=== PATIENT | male | born 1955 | race Caucasian/White ===

== ENCOUNTER 2020-06-26 13:21 | Outpatient (CLI) | payer MEDICARE, MEDICAID, SELFPAY ==
--- NOTE | 2020-06-26 13:37 | CT_ITS ---
WS: [id number] CT HEAD NONCONTRAST AND CONTRAST-ENHANCED TECHNIQUE: Noncontrast and contrast-enhanced CT of the head obtained from the skullbase to the vertex . CLINICAL INFORMATION: UNSPECIFIED DEMENTIA WITHOUT BEHAVORAL DISTURBANCE COMPARISON: None. DLP: 1984.[address] scans at [facility] use at least one of these dose optimization techniques: automat ed exposure control; mA and/or kV adjustment per patient size (includes targeted exams where dose is matched to clinical indication); or iterative reconstruction. FINDINGS: No evidence of intracranial hemorrhage or mass effect. Ventricular system and basal cisterns are foss nt. Moderate small vessel changes with moderate parenchymal volume loss. Moderate atrophy in the post erior fossa. No extra-axial fluid collections. No evidence of mass or mass effect. Incidental pineal calcification. No abnormal cranial enhancement. Paranasal sinuses and mastoid air cells are well aerated. .Normal visualized soft tissues. CT/CT head wo/w con [id number] IMPRESSION: 1. No evidence of intracranial hemorrhage or mass effect. 2. Moderate small vessel changes with moderate parenchymal volume loss. 3. No abnormal intracranial enhancement. 4. No acute intracranial findings.
[2020-06-26 14:04] LABS: Blood Urea Nitrogen 15 mg/dL (8-23); Glomerular Filtration Rate 134.8 mL/min (90-130)
[2020-06-26] MEDS: iohexol 300 mg/mL 100 mL Btl IV (14:14)
== END 2020-06-26 13:22 | disposition home or self-care (01) ==
PROVIDERS: Visit Provider Family Medicine
DX: F03.90 Unspecified dementia, unspecified severity, without behavioral disturbance, psychotic disturbance, mood disturbance, and anxiety (principal)
CPT/HCPCS: 70470; 82565; 84520; Q9967

== ENCOUNTER 2023-04-03 00:32 | Inpatient (IN) | payer MEDICARE, MEDICAID, SELFPAY ==
[2023-04-03] VITALS (22 sets, daily range): BP systolic 89–134; BP diastolic 53–75; PULSE 53–84; RESP 10–18; TEMP 36.1–37.1; O2SAT 91–98; BMI 27.0; BMI 23.7; BMI 23.8
--- NOTE | 2023-04-03 00:37 | XRR_ITS ---
PROCEDURE INFORMATION: Exam: XR Right Hip Exam date and time: 04/03/2023 1:18 AM Age: 67 years old Clinical indication: Hip pain; Right hip; Additional info: Fall, right hip pain TECHNIQUE: Imaging protocol: Radiologic exam of the right hip. Views: 1 view hip with pelvis when performed. COMPARISON: No relevant prior studies available. FINDINGS: Bones/joints: Minimally displaced and mildly impacted right transcervical femoral neck fracture. Femoral head remains well seated within the acetabulum. Soft tissues: Mild regional soft tissue swelling about the fracture. XR/XR hip RT 2-3V wo/w pel* [id number] IMPRESSION: Acute right transcervical femoral neck fracture.
--- NOTE | 2023-04-03 00:44 | W.ED.EXTPRO ---
HPI - Extremity Problem General: Chief complaint: Extremity Injury, Lower Stated complaint: hip pain, fall Time Seen by Provider: 04/03/23 00:36 History of Present Illness: Patient presents from his home by [facility] status post fall. Patient had an unwitnessed fall at his house. It happened approximately between 930 and 11:00. Patient was given 100 mcg of fentanyl and 4 mg Zofran on route by EMS. Patient is right leg appears to be shortened and patient is very tender upon the right hip region. Review of Systems General: Reports: 10 or more systems reviewed and unremarkable except in HPI and below Physical Exam Const: COMMON NORMALS: no acute distress, average body habitus, healthy appearing, alert and well nourished HENMT: COMMON NORMALS: normocephalic, atraumatic, hearing grossly normal bilaterally, external ears normal, Normal external nose present, moist oral mucous membranes and oropharynx normal HEAD & SCALP: normocephalic and atraumatic NOSE: Normal external nose present EXTERNAL EAR: Yes external ears normal Neck/C-Spine: COMMON NORMALS: full ROM, no lymphadenopathy, supple, no meningeal signs, no JVD and Thyroid normal THYROID: Thyroid normal Chest: COMMONS NORMALS: normal inspection of the chest and normal palpation of entire chest wall Resp: COMMON NORMALS: normal respiratory effort, No retractions, No use of accessory muscles and clear to auscultation bilaterally AUSCULTATION: clear to auscultation bilaterally Cardio: COMMON NORMALS: no JVD, regular rate, regular rhythm, S1 normal heart sound present, S2 normal heart sound present, No gallops present (Cardio), No clicks present (Cardio), No murmurs present (Cardio) and No rub (Cardio) RATE: regular rate RHYTHM: regular rhythm HEART SOUNDS: S1 normal heart sound present and S2 normal heart sound present GI: COMMON NORMALS: Normal to inspection, nondistended, normoactive bowel sounds present, Soft to palpation, non-tender, No hepatosplenomegaly present and no masses PALPATION: Yes Soft to palpation and Yes No hepatosplenomegaly present Extremity: NARRATIVE EXTREMITY EXAM: Pain with palpation over right hip region limited range of motion secondary to pain. Neuro: SENSORIUM/ORIENTATION: Yes alert MENINGEAL SIGNS: Yes no meningeal signs Course Vital Signs: Vital signs: Vital Signs Temperature 98.1 F 04/03/23 00:33 Pulse Rate 80 04/03/23 01:45 Respiratory Rate 14 04/03/23 01:45 Blood Pressure 122/74 04/03/23 01:45 Pulse Oximetry 94 04/03/23 01:45 Oxygen Delivery Me thod Room Air 04/03/23 01:45 MDM - Extremity (Nontraumatic) Medical Decision Making Patient presents via EMS secondary to a fall and right hip pain. X-ray was obtained which revealed a right hip fracture. Dr. Saundra Franklin was consulted. Dr. Aldana was consulted who agreed for inpatient treatment for further evaluation. Patient was made n.p.o. we will get basic lab work type and cross chest x-ray and EKG for presurgical clearance. Differential Diagnosis Unlikely herpes zoster, gout, cellulitis, superficial thrombophlebitis, deep venous thrombosis of upper extremity, lower extremity edema or deep vein thrombosis of lower extremity Medical Records I reviewed the patient's medical records. Lab Data I reviewed the patient's lab results. All radiology interpretation(s) finalized by discharge Discharge Plan Discharge Patient Disposition: Admitted As Inpatient Clinical Impression: Fracture of hip Qualifiers: Encounter type: initial encounter Fracture type: closed Laterality: right Qualified Code(s): S72.001A - Fracture of unspecified part of neck of right femur, initial encounter for closed fracture Condition: Stable Coding Level of Care Code ED Technical Support Manager for Shaniqua Belcher
[2023-04-03] MEDS: fentaNYL 50 mcg/mL INJ 2mL 100 MCG IVP (01:37)
--- NOTE | 2023-04-03 02:07 | ECG_ITS ---
[facility] Test Date: 2023-04-03 Pat Name: Ankush Clay Department: Room: 269 Gender: Male Ship'S Engineer: : [id number] Requested By: Landon Aguilera Order Number: [id number] Angie MD: Александр Marquez M.D. Measurements Intervals Britt Rate: 75 P: 54 AK: 196 QRS: -17 QRSD: 101 T: 56 QT: 379 QTc: 425 Interpretive Statements SINUS RHYTHM LOW QRS VOLTAGE IN PRECORDIAL LEADS [QRS DEFLECTION < 1.0 mV IN CHEST LEADS] No previous ECG available for comparison Electronically Signed On 04-03-2023 6:00:37 SENIOR CHEMICAL ENGINEER by Александр Marquez M.D. [id number] f
--- NOTE | 2023-04-03 02:07 | XRR_ITS ---
PROCEDURE INFORMATION: Exam: XR Chest Exam date and time: 04/03/2023 2:12 AM Age: 67 years old Clinical indication: Injury or trauma; Fall TECHNIQUE: Imaging protocol: Radiologic exam of the chest. Views: 1 view. COMPARISON: No relevant prior studies available. FINDINGS: Lungs: No consolidation. Small opacity projecting over the left lateral hemithorax, indeterminate, could be within bone or overlying soft tissues versus within the lung. Pleural spaces: No large pleural effusion. No pneumothorax. Heart/Mediastinum: Unremarkable cardiomediastinal silhouette. Bones/joints: Old healed left 5th posterior rib fracture deformity. No acute fracture identified. XR/XR chest 1V portable [id number] IMPRESSION: No acute fracture identified. Small opacity projecting over the left lateral hemithorax, indeterminate, could be within bone or overlying soft tissues versus within the lung.
[2023-04-03 02:25] LABS: Basophils % 0.2 %; Hematocrit 43.3 % (37-53); Lymphocytes # 0.6 10^3/uL (0.8-4.8); Lymphocytes % 6.1 %; Mean Corpuscular HGB Conc 33.5 g/dL (30-55); Mean Corpuscular Volume 98.6 fl (82-101); Mean Platelet Volume 9.6 fL (7.4-10.4); Monocytes # 0.4 10^3/uL (0.2-0.9); Monocytes % 4.4 %; Neutrophils # 8.99 10^3/uL (1.8-7.7); Neutrophils % 88.9 %; Nucleated Red Blood Cells % 0 %; Platelet Count 215 10^3/cmm (157-399); Red Blood Count 4.39 10^6/uL (3.85-5.65); Red Cell Distribution Width 13.3 % (12.1-15.1); White Blood Count 10.11 10^3/uL (3.29-11.43)
--- NOTE | 2023-04-03 02:56 | PC.NURSE ---
Report called to JEZ Stevens. Patient and paperwork transferred to Med-Surg room 269.
--- NOTE | 2023-04-03 03:12 | P.HP_ITS ---
Providers/Chief Complaint 2 Admitting Physician: Grupo Aldana MD Chief Complaint: hip pain, fall History of Present Illness Ankush Clay is a 67 year old male with history of seizures, on 2 antiepileptics, dementia, DNR/DNI, presented to the hospital after sustaining a fall. Daughter is at the bedside stating that her dad has been falling lately at home,he grabs onto the furniture, 2 days fall was not witnessed, she went to bed early because she has to wake up at 2:30 AM to work, she takes sleeping aid, she checked on her father between 9 and 11 PM when he was found on the floor, patient is denying any seizure related activity, he is attributing his fall to losing balance, he was trying to get out of his bedroom to grab something from the kitchen. He was diagnosed with right femoral neck fracture, right leg is shortened and rotated course Hemodynamically stable Currently on room air Pleasant and cooperative No previous significant medical surgical history Review of Systems 2 Const: Denies: fever(s) Eyes: Denies: change in vision ENMT: Denies: throat pain Card: Denies: chest pain Resp: Denies: dyspnea GI: Denies: abdominal pain : Denies: flank pain Musc: Denies: neck pain Skin/Breast: Denies: rash Medications/Allergies Home Medications Medication Instructions Recorded Confirmed Last Taken Type carbamazepine 200 mg 200 mg PO BID 04/03/23 04/03/23 Unknown History capsule,extended release [id number] carbamazepine 300 mg 300 mg PO BID 04/03/23 04/03/23 04/02/23 History capsule,extended release [id number] donepezil 10 mg tablet 10 mg PO BEDTIME 04/03/23 04/03/23 Unknown History paroxetine HCl 10 mg tablet 10 mg PO DAILY 04/03/23 04/03/23 Unknown History phenytoin sodium extended 100 mg 100 mg PO DAILY 04/03/23 04/03/23 Unknown History capsule (Dilantin Extended) primidone 250 mg tablet 250 mg PO BID 04/03/23 04/03/23 Unknown History Allergies Allergy/AdvReac Type Severity Reaction Status Date / Time Penicillins Allergy Unknown Verified 04/03/23 00:43 PFSH Acute 2 PFSH: Medical History Seizure Surgical History No pertinent past surgical history Vitals/I&O/Wt Last Vital Signs Temp 98.1 F 04/03/23 00:33 Pulse 80 04/03/23 01:45 Resp 14 04/03/23 01:45 BP 122/74 04/03/23 01:45 Pulse Ox 94 04/03/23 01:45 O2 Del Method Room Air 04/03/23 01:45 Weight last 48 hrs Weight 79.379 kg Physical Exam 2 Narrative: Euvolemic Pleasant cooperative S1, S2 Abdomen soft Right leg shortened and rotated outwards Nonfocal neuroexam GCS 15 Nonfocal neuroexam Daughter at the bedside Data 04/03/23 02:20 04/03/23 02:54 A&P Assessment and plan (1) Fracture of hip: Qualifiers: Encounter type: initial encounter Fracture type: closed Laterality: r ight Qualified Code(s): S72.001A - Fracture of unspecified part of neck of right femur, initial encounter for closed fracture Plan Right femoral neck fracture Patient sustained a fall Patient has been falling lately Patient is on phenytoin which can cause B12 deficiency, MCV is high normal, check TSH and B12 Dr. Arguello consulted Planning for intervention in the morning N.p.o. Patient not on any anticoagulating agent I will check antiepileptic levels Patient is stating that he is DNR/DNI Carries history of dementia Patient fairly active for his age, no need of cardiac workup before surgery DVT prophylaxis: SCDs I would continue his antiepileptics Along bowel regimen Attestations 2 Medical Necessity Statement*: More than 2 midnights anticipated Diagnoses Fracture of hip S72.001A Encounter type: initial encounter Fracture type: closed Laterality: right
[2023-04-03 03:21] LABS: Alanine Aminotransferase 18 U/L (0-41); Alkaline Phosphatase 133 U/L (40-130); Anion Gap 14.4 (5-19); Aspartate Amino Transferase 16 U/L (0-40); Blood Urea Nitrogen 15 mg/dL (8-23); Calcium 8.7 mg/dL (8.5-10.5); Carbon Dioxide 26 mmol/L (22-29); Chloride 96 mmol/L (98-107); Globulin 2.7 g/dL (1.3-4.6); Glomerular Filtration Rate 96.1 mL/min (90-130); Glucose 143 mg/dL (65-115); Osmolality Calculated 277 mOsm/kg (285-295); Potassium 4.4 mmol/L (3.5-5.1); Sodium 132 mmol/L (136-145); Total Bilirubin 0.4 mg/dL (0.15-1.2); Total Protein 6.7 g/dL (6.6-8.7)
[2023-04-03 03:51] LABS: Procalcitonin 0.03 ng/mL (0-0.5)
[2023-04-03 04:05] LABS: INR 1.11 (0.8-1.2)
[2023-04-03] MEDS: oxyCODONE-APAP 10-325 mg Tablet 1 TAB PO ×4 (04:21→21:48)
[2023-04-03] MEDS: sodium chloride 0.9% 1,000 ML 75 ML IV (04:22)
[2023-04-03 04:29] LABS: Estmated Average Glucose 97
[2023-04-03 04:38] LABS: Phenytoin Dilantin 6.1 ug/mL (10-20)
[2023-04-03 04:49] LABS: Prolactin 18.52 ng/mL (4.0-15.2); Thyroid Stimulating Hormone 4.05 uIU/mL (0.27-4.20); Vitamin B12 186 pg/mL (232-1245)
[2023-04-03 05:07] LABS: Magnesium 2.2 mg/dL (1.7-2.3)
--- NOTE | 2023-04-03 07:01 | PM.CONSULT ---
Providers/Reason For Consult Consulting Physician/Specialty*: Vinicio Arguello DO/orthopedic surgery Reason for Consult*: Right hip femoral neck fracture Requesting Physician: Dr. Aguilera Attending Physician: Grupo Aldana MD History of Present Illness History of Present Illness Ankush Clay is a 67 year old male with history of seizures, on 2 antiepileptics, dementia, DNR/DNI, presented to the hospital after sustaining a fall. Daughter is at the bedside stating that her dad has been falling lately at home,he grabs onto the furniture, patient had ground-level fall. Found by daughter who he lives with. Patient denies any loss of consciousness or any seizure type activity. Patient states he mechanically fall and just lost his balance. He was diagnosed with right femoral neck fracture, right leg is shortened and rotated course Denies any other injuries. History of seizures as well as dementia at baseline. Family at bedside. Patient lives at home with daughter. Ambulates at baseline but does have an unsteady gait. Review of Systems General: Reports: 10 or more systems reviewed and unremarkable except in HPI and below Medications/Allergies Home Medications Medication Instructions Recorded Confirmed Last Taken Type carbamazepine 200 mg 200 mg PO BID 04/03/23 04/03/23 Unknown History capsule,extended release [id number] carbamazepine 300 mg 300 mg PO BID 04/03/23 04/03/23 04/02/23 History capsule,extended release [id number] donepezil 10 mg tablet 10 mg PO BEDTIME 04/03/23 04/03/23 Unknown History paroxetine HCl 10 mg tablet 10 mg PO DAILY 04/03/23 04/03/23 Unknown History phenytoin sodium extended 100 mg 100 mg PO DAILY 04/03/23 04/03/23 Unknown History capsule (Dilantin Extended) primidone 250 mg tablet 250 mg PO BID 04/03/23 04/03/23 Unknown History Allergies Allergy/AdvReac Type Severity Reaction Status Date / Time Penicillins Allergy Unknown Verified 04/03/23 00:43 Current Medications Generic Name Dose Route Start Last Admin Trade Name Freq PRN Reason Stop Dose Admin Sodium Chloride 1,000 mls @ 75 mls/hr 04/03/23 03:56 04/03/23 04:22 Sodium Chloride 0.9% IV 75 mls/hr .[id number] CHARLES Administration Oxycodone/Acetaminophen 1 tab 04/03/23 03:56 04/03/23 04:21 Oxycodone-Apap 10-325 Mg Tablet PO 1 tab Q4H PRN Administration MODERATE PAIN PFSH Acute PFSH: Medical History Seizure Surgical History No pertinent past surgical history Vitals/I&O/Wt Last Vital Signs Temp 98.1 F 04/03/23 00:33 Pulse 80 04/03/23 01:45 Resp 17 04/03/23 04:21 BP 122/74 04/03/23 01:45 Pulse Ox 94 04/03/23 01:45 O2 Del Method Room Air 04/03/23 04:39 Weight last 48 hrs Weight 166 lb 6.4 oz Weight 165 lb 4.8 oz Weight 175 lb Physical Exam Narrative: Examination of the right hip: Examination right lower extremity shortened and externally rotated. Positive logroll. Patient unable to perform [facility] examination secondary to pain. Patient is able to wiggle toes plantarflex and dorsiflex ankle sensations intact light touch distally. Distal pulses are palpable. No tenderness to palpation of the right knee no tenderness palpation of the right ankle. Patient has tenderness palpation of the right hip. Negative pelvic compression test. Secondary survey examination demonstrates no tenderness along the spine. Normal shoulder and upper extremity joint ranges of motion with no pain or discomfort no deformities noted gross motor and sensory intact the bilateral upper extremities. The left lower extremity demonstrates no tenderness to palpation of the left lower extremity joints with normal range of motion negative logroll and gross motor and sensory intact. All extremities are warm well-perfused brisk capillary refill less than 2 seconds and distal pulses are palpable. Const: COMMON NORMALS: no acute distress (Mild discomfort secondary to pain of the right hip) and alert HENMT: COMMON NORMALS: normocephalic and atraumatic HEAD & SCALP: normocephalic and atraumatic Resp: COMMON NORMALS: normal respiratory effort and No retractions Cardio: COMMON NORMALS: Peripheral pulses 2+ throughout PERIPHERAL PULSES: Peripheral pulses 2+ throughout Neuro: SENSORIUM/ORIENTATION: Yes alert Urinary Catheter Management: Villanueva: Cath Placed During This Visit: yes Reason for Continuing Indwelling Catheter: Perioperative Use in Selected Surgeries Urinary Catheter Date of Insertion: 04/03/23 Urinary Catheter Time of Insertion: 04:38 Data 04/03/23 02:20 04/03/23 02:54 Xray Ortho: My impression: X-rays of the right hip as well as femur reviewed and personally interpreted by myself demonstrate a displaced right hip femoral neck fracture. A&P Assessment and plan (1) Fracture of hip: Qualifiers: Encounter type: initial encounter Fracture type: closed Laterality: right Qualified Code(s): S72.001A - Fracture of unspecified part of neck of right femur, initial encounter for closed fracture (2) Displaced fracture of right femoral neck: Plan N.p.o. since midnight Internal medicine on board as primary X-rays reviewed Imaging reviewed Patient has displaced right hip femoral neck fracture Patient has history of seizures, well-controlled with medications according to family and patient DVT prophylaxis?hold a.m. anticoagulation Plan to proceed with right hip hemiarthroplasty Pain control Nonweightbearing right lower extremity MDM: Patient is a 67-year-old woman who sustained a ground-level fall at home has a right hip femoral neck fracture. Talked about his treatment options he does have dementia at baseline as well as medically controlled seizures I would recommend he be a good candidate for right hip hemiarthroplasty we talked about this in detail with patient as well as family they understand the ins and outs of procedure the risk benefits complication alternatives of surgery. Risk of surgery include not limited to make it better make it worse injury to nerves vessels or tendons, instability, leg length discrepancies, infection. Understanding risks with surgery they elect to proceed. All questions answered this time we will proceed with a right hip hemiarthroplasty today. Coding Level of Care Code Acute Code for [facility] Fwd Diagnoses Fracture of hip S72.001A Encounter type: initial encounter Fracture type: closed Laterality: right Displaced fracture of right femoral neck S72.001A Time Spent (min) 45
[2023-04-03] MEDS: sennosides-docusate Tablet 1 TAB PO (08:38)
--- NOTE | 2023-04-03 10:03 | PC.NURSE ---
Pt refused AM medications, due to medications not matching home list. Notified MD and new home list given for update.
[2023-04-03 10:19] LABS: D Dimer 9.53 ug/mLFEU (0-0.59)
[2023-04-03 11:36] LABS: Urine Appearance Clear (CLEAR); Urine Color Yellow (Yellow); pH Urine 6 (5-7)
[2023-04-03 11:37] LABS: Add Urine Microscopic? YES; Bilirubin Urine Neg (Negative); Blood Urine 2+ (Negative); Glucose Urine UA Norm (Normal); Ketones Urine Negative (Negative); Leukocyte Esterase Urine 1+ (Negative); Nitrate Urine Negative (Negative); Protein Urine Neg (Negative); Urobilinogen Urine Norm (Negative)
[2023-04-03 11:52] LABS: Bacteria Urine TRACE /hpf; Mucus Urine TRACE /hpf; RBC Urine 0-4 /hpf (0-2); Squamous Epithelial Cell Urine 0-4 /hpf (0-5); Transitional Epi Cells Urine 0-4 /hpf
[2023-04-03 11:53] LABS: Add Urine Culture? No; WBC Urine 15-25 /hpf (0-5)
[2023-04-03 12:55] LABS: Carbamazepine Tegretol 10.9 ug/mL (4.0-12.0)
--- NOTE | 2023-04-03 13:47 | XR_ITS ---
WS: [id number] Right femur and thigh, 4 views, 04/03/2023, 1405 hours Clinical Data: r hip fx Comparison: Pelvis and right hip, 04/03/2023 0126 hours Findings: The fracture of the right femoral neck remains the same. The right femoral head remains within the ac etabulum. The soft tissues are normal. The distal femur is intact. The right knee shows no abnormalities. Impression: No change in fracture of right femoral neck.
[2023-04-03] MEDS: phenytoin ER 100 mg Capsule PO ×2 (14:42→21:48)
[2023-04-03] MEDS: sodium chloride 0.9% 1,000 ML 30 ML IV (15:10)
--- NOTE | 2023-04-03 15:24 | W.PM.OPSUD ---
Surgery/Procedure H&P Update DATE OF PROCEDURE: April 03, 2023 DATE H&P PERFORMED: 04/03/23 H&P UPDATE INFORMATION: I have reviewed H&P completed within last 30 days, I have examined patient prior to procedure and No changes to prior documentation PREOP DIAGNOSIS: Right hip femoral neck fracture PRIMARY INDICATION FOR PROCEDURE: Right hip femoral neck fracture PLANNED PROCEDURE: Operation Date: 04/03/23 16:55 Proposed Procedures p Hemiarthroplasty Hip(Right) - Vinicio Arguello DO
--- NOTE | 2023-04-03 15:41 | ANES.PREANE2 ---
Pre-Anesthetic Assessment Height/Weight: Height 1.78 m Weight 75.478 kg Temp Pulse Resp BP Pulse Ox O2 Del Method 98.2 F 71 16 110/67 95 Room Air 04/03/23 12:00 04/03/23 12:00 04/03/23 13:56 04/03/23 12:00 04/03/23 12:00 04/03/23 12:00 Preop Diagnosis: Right hip femoral neck fracture Operation Date: 04/03/23 16:55 Proposed Procedures p Hemiarthroplasty Hip(Right) - Vinicio Arguello DO Familial anesthetic complications: none Was Beta Lambert taken within 24 hours: N/A Was Clonidine taken within 24 hours: N/A Last intake: Intake Last Liquid Date 04/03/23 Last Liquid Time 07:00 Last Solid Date 04/02/23 Last Solid Time 20:00 Social No alcohol and No tobacco Exam alert, oriented x 3, clear to auscultation bilaterally and regular rate & rhythm Airway Submandibular: within normal limits Cervical ROM: within normal limits Mallampati: Class II Dentition: chipped Neuropsych Anxiety, Depression and Seizure Anesthetic Plan ASA status: 2 Anesthesia: Regional (specify below) (SAB) Medications/Allergies Home Medications Medication Instructions Recorded Confirmed Last Taken Type carbamazepine 200 mg 200 mg PO BID 04/03/23 04/03/23 Unknown History capsule,extended release [id number] carbamazepine 300 mg 300 mg PO BID 04/03/23 04/03/23 04/02/23 History capsule,extended release [id number] donepezil 10 mg tablet 10 mg PO BEDTIME 04/03/23 04/03/23 Unknown History paroxetine HCl 10 mg tablet 10 mg PO DAILY 04/03/23 04/03/23 Unknown History phenytoin sodium extended 100 mg 100 mg PO DAILY 04/03/23 04/03/23 Unknown History capsule (Dilantin Extended) primidone 250 mg tablet 250 mg PO BID 04/03/23 04/03/23 Unknown History Allergies Allergy/AdvReac Type Severity Reaction Status Date / Time Penicillins Allergy Unknown Verified 04/03/23 00:43 Current Medications Generic Name Dose Route Start Last Admin Trade Name Freq PRN Reason Stop Dose Admin Carbamazepine 400 mg 04/03/23 09:00 04/03/23 10:03 Carbamazepine Xr (12 Hr) 200 Mg Tablet PO Not Given BID CHARLES Carbamazepine 100 mg 04/03/23 09:00 04/03/23 10:03 Carbamazepine Xr (12 Hr) 100 Mg Tablet PO Not Given BID CHARLES Sodium Chloride 1,000 mls @ 75 mls/hr 04/03/23 03:56 04/03/23 04:22 Sodium Chloride 0.9% IV 75 mls/hr .[id number] CHARLES Administration Sodium Chloride 1,000 mls @ 30 mls/hr 04/03/23 15:00 04/03/23 15:10 Sodium Chloride 0.9% IV 04/04/23 14:59 30 mls/hr .Q24H CHARLES Administration Oxycodone/Acetaminophen 1 tab 04/03/23 03:56 04/03/23 13:56 Oxycodone-Apap 10-325 Mg Tablet PO 1 tab Q4H PRN Administration MODERATE PAIN Phenytoin 100 mg 04/03/23 14:15 04/03/23 14:42 Phenytoin Er 100 Mg Capsule PO 100 mg DAILY@1400 CHARLES Administration Senna/Docusate Sodium 1 tab 04/03/23 09:00 04/03/23 08:38 Sennosides-Docusate Tablet PO 1 tab DAILY CHARLES Administration PFS Anesthesia Medical History Seizure Surgical History No pertinent past surgical history Data Anesthesia 04/03/23 02:20 04/03/23 02:54 Short CBC 04/03/23 Range/Units 02:20 WBC 10.11 (3.29-11.43) 10^3/uL Hgb 14.50 (11.27-16.99) g/dL Hct 43.3 (37-53) % MCV 98.6 (82-101) fl Plt Count 215 (157-399) 10^3/cmm Neut % (Auto) 88.9 % Neut # (Auto) 8.99 H (1.8-7.7) 10^3/uL BMP 04/03/23 04/03/23 02:20 02:54 Sodium Cancelled 132 L Potassium Cancelled 4.4 Chloride Cancelled 96 L Carbon Dioxide Cancelled 26 BUN Cancelled 15 Creatinine Cancelled 0.8 Glucose Cancelled 143 H Calcium Cancelled 8.7 Liver Function 04/03/23 04/03/23 Range/Units 02:20 02:54 Total Bilirubin Cancelled 0.4 AST Cancelled 16 ALT Cancelled 18 Alkaline Phosphatase Cancelled 133 H Albumin Cancelled 4.0 Urine 04/03/23 Range/Units 10:30 Urine Color Yellow (Yellow) Urine Appearance Clear (CLEAR) Urine pH 6 (5-7) Ur Specific [place] 1.010 (1.005-1.030) Urine Protein Neg (Negative) Urine Glucose (UA) Norm (Normal) Urine Ketones Negative (Negative) Urine Nitrate Negative (Negative) Urine Bilirubin Neg (Negative) Ur Leukocyte Esterase 1+ H (Negative) Urine RBC 0-4 H (0-2) /hpf Urine WBC 15-25 H (0-5) /hpf Blood Bank 04/03/23 04/03/23 02:20 02:54 Blood Type Cancelled AB Positive Rho(D) Type Cancelled Rh positive Antibody Screen Cancelled Negative Coags 04/03/23 04/03/23 02:20 02:54 PT Cancelled 14.70 INR Cancelled 1.11 D-Dimer 9.53 H C-Reactive Protein 3.0 Cardiac Studies: No Data to Display
[2023-04-03] MEDS: vancomycin 1,000 MG in sodium chloride 0.9% 250 ML 250 MG IV ×2 (16:22→20:39)
[2023-04-03] MEDS: ketorolac 30 mg/mL INJ IVP (16:22)
[2023-04-03] MEDS: acetaminophen 1,000 MG/100 ML PIGGYBACK 400 MG IV (16:22)
[2023-04-03] MEDS: clindamycin 600 MG/50 ML PREMIX 100 MG IV (17:00)
[2023-04-03] MEDS: tranexamic acid 1,000 MG/100 ML PREMIX 600 MG IV (17:20)
[2023-04-03] MEDS: vancomycin 1,000 MG SDV 1000 MG INTRA-ARTI (18:01)
--- NOTE | 2023-04-03 18:24 | XRR_ITS ---
PROCEDURE INFORMATION: Exam: XR Right Hip Exam date and time: 04/03/2023 7:57 PM Age: 67 years old Clinical indication: Device placement; Other: Hip replacement; Additional info: Post op hip abdi, do in pacu TECHNIQUE: Imaging protocol: Radiologic exam of the right hip. Views: 1 view hip with pelvis when performed. COMPARISON: CR (PELVIS, ) 04/03/2023 1:18 AM FINDINGS: Bones/joints: Sequela of recently placed right hip hemiarthroplasty in expected alignment. Soft tissues: Soft tissue swelling and air noted around the hip consistent with recent surgical procedure. XR/XR hip RT 2-3V wo/w pel* [id number] IMPRESSION: Sequela of recently placed right hip hemiarthroplasty in expected alignment.
--- NOTE | 2023-04-03 18:25 | PM.OP ---
Operative Report Date of procedure: April 03, 2023 Surgeon: Vinicio Arguello DO Tariff Counsel: Shahriar Arguello PA-C: PA was necessary for assistance in this case with leg positioning to execute the procedure as well as retraction and protection of neurovascular structures, to assist with implantation as well as assistance and wound closure and dressing application. Procedure: Preoperative diagnosis: Right hip displaced femoral neck fracture post-op diagnosis: Same Procedure done: Right?hip?hemiarthroplasty, cemented Implants: [place] Accolade C 132 degree femoral stem size 4 Bipolar head 51 mm Femoral head +4 mm offset 11mm distal cement spacer Cement Surgeon: Vinicio Arguello DO Estimated blood loss: 100 mL IV fluids: See anesthesia record Urine output: See anesthesia record Complications: None Findings: See operative report Condition: stable Disposition: floor Brief History: Patient was seen in the emergency department and subsequently admitted after fall.? Patient sustained a right displaced femoral neck fracture.? Patient was subsequently admitted by the hospitalist team for medical management and preoperative optimization and the orthopedic surgery team was consulted for evaluation and treatment recommendations.? At that point time discussed with patient? treatment options.? We talked about nonoperative versus operative intervention talked about the risk benefits complication alternatives to surgical nonsurgical treatment options.? Risks of surgery were discussed and pt and family understands and agrees to proceed with procedure.? At this point time would recommend a right?hip?hemiarthroplasty.? This will offer patient pain control as well as early weightbearing.? Patient was medically optimized and pt was then taken to the OR.? Patient understands risk benefits complication alternatives with surgical nonsurgical treatment options.? At this point time elects to proceed with right?hip?hemiarthroplasty.? All questions answered.? Patient understands agrees with current plan.? All questions answered. Procedure: Patient seen evaluated the preoperative holding area.? Consent was reviewed and signed with patient.? ?Pt was seen evaluated by the anesthesia department.? Once cleared for surgery patient patient was taken back to the operative suite.? Patient was then transported onto the OR table.? pt underwent anesthesia per the anesthesia department.? Once appropriately anesthetized patient was then positioned in lateral decubitus position with the right?hip?up.? Patient was placed on a pegboard appropriately secured to the bed all bony prominences well-padded.? Next the right lower extremity was then prepped and draped in sterile orthopedic fashion.? Final timeout performed.? Patient received appropriate preoperative antibiotics. A standard posterolateral approach was then made over the lateral aspect of the?hip.? Sharp scalpel incision was made through skin and subcutaneous tissue I then utilized a Pulido elevator to mobilize over the fascia.? The fascia was then split longitudinally with electrocautery.? Next a bursectomy was then performed.? I then placed Hohmann underneath the abductors.? The?hip?was placed under tension with internal rotation.? I then utilizing electrocautery performed a full-thickness release of the short external rotators and capsule in 1 full thick sleeve for lateral repair.? This was then taken down to the lesser trochanter.? Immediately on capsulotomy hematoma was noticed and displaced femoral neck fracture appreciated.? I then placed a Hohmann above and below the neck.? I then utilized an oscillating saw to freshen the cut this was roughly half of a fingerbreadth above the lesser as patient did fracture slightly lower on the neck.? Once this was performed this access was removed with rongeur.? ?I then utilized a corkscrew to remove the head.? This was then subsequently sized and measured to be a 51 mm head size.? I then thoroughly irrigated the acetabulum.? A Hohmann was placed anteriorly and thorough inspection of the acetabulum no significant arthritic changes were noted.? I then utilized a rongeur and Bovie to remove the pulvinar.? Once this was performed I then subsequently took my trial 51 mm head and trialed this which had excellent fit and appropriate suction fit noted.? This was then subsequently removed. Once this was performed I irrigated the socket and then turned my attention towards the femoral preparation.? I utilized Bovie and rongeur to remove the soft tissue off of the saddle.? Once this was done a box osteotome followed by a canal finder and? lateralizing rattail rasp was used to appropriately lateralized in the canal.? Next I then subsequently broached to a size 4 Accolade C. [place] femoral stem which had appropriate fixation.? I was able to trial with this and this appeared to be appropriate length with ability to add slight offset if needed once cemented.? Once this was done I then removed the size 4femoral stem and then subsequently proceeded with standard cementation technique.? Cement was mixed on the back table the final implant was opened and appropriately measurement on distal cement plug to accommodate the cement mantle and femoral stem.? This was set and impacted in place to appropriate depth.? Next I utilized the cement brush thoroughly irrigated the canal and then dry the canal tampon.? Once cement was appropriately mixed and ready for cementation informed anesthesia and they optimize patient's oxygenation cement was then impacted using cement gun and then was subsequently pressurized.?? The femoral stem size 4 was then impacted in place with appropriate anteversion and held into place and all excess cement was removed and allowed to cure once cured I then trialed a +4 size head which at that point there was which had excellent leg lengths as well as appropriate shuck, and excellent stability in all planes of motion with no evidence of instability.? At this point this was determined to being my final femoral head size.? This was subsequently dislocated the trial head was then removed the final implant of bipolar head 51 mm with a +4 mm offset was then opened.? The trunnion was then cleaned and dried and this was impacted in place with excellent fixation.? I then reduced the?hip?this had excellent stability and appropriate leg lengths.? The wound bed was then thoroughly irrigated.? I then utilizing #5 Ethibond suture performed my repair of the capsule and short external rotators through bone tunnels.? ?Wound bed was then thoroughly irrigated,1 gram vanco powder placed in wound bed.? IT band was closed with strata fix suture and the deep subcutaneous and subcutaneous layers were closed with 0 strata fix and 2-0 strata fix.? Skin was then closed reapproximated with valentina.? Silverlon dressing applied.? Patient placed in abduction pillow posterior?hip?precautions.? pt? was awakened from anesthesia and taken to PACU in stable condition Disposition: Patient taken to PACU in stable condition will receive appropriate discharge directions as well as pain medication DVT prophylaxis postoperatively.? Patient? will return to the floor postoperatively.? Patient will be weightbearing as tolerated to the right lower extremity.? Posterior?hip?precautions. Abduction pillow in place.? DVT prophylaxis, pain medication, postoperative antibiotics and TXA.? Patient will work with PT/OT and discharge services for discharge planning.? Patient understands agrees with current plan.? All questions answered.? ?patient will? see me in the office in 2 weeks.
--- NOTE | 2023-04-03 18:53 | P.BOP_ITS ---
Date of Procedure: [April 03, 2023] Surgeon: [Dr. Arguello DO] Stereotype Molder(s): [Shahriar Arguello PA-C] Procedure(s) performed: [Right hip hemiarthroplasty] Findings of the procedure(s): [Displaced fracture of right femoral neck] Estimated blood loss: [100 ml] Specimen(s) removed: [femoral head] Post-operative diagnosis: [Displaced fracture of right femoral neck]
--- NOTE | 2023-04-03 18:55 | ANE.PACU2 ---
Inpatient post-anesthesia follow up: Airway intact: Yes Vital signs: Temperature 98.2 F Pulse Rate 71 Respiratory Rate 16 Blood Pressure 110/67 Pulse Oximetry 95 Oxygen Delivery Me thod Room Air Oxygen Flow Rate Fraction of Inspir ed Oxygen Hydration adequate: Yes Nausea and vomiting: No Pain level: 1 Mental status: Baseline
--- NOTE | 2023-04-03 18:56 | PM.PACU ---
PACU note Narrative: Patient is a 67-year-old male who just underwent a right hip hemiarthroplasty. Pt transferred to PACU in stable condition. Dressing is dry. pt is awake and alert. Distal pulses are palpable toes are warm and well-perfused. Unable to perform any further exam or assessment on sensation or motor due to residual spinal anesthetic. pain is controlled. Exam: awake Disposition: back to floor
[2023-04-03] MEDS: donepezil 5 MG Tablet 10 MG PO (21:48)
[2023-04-03] MEDS: chlorhexidine gluconate 0.12% Btl 473 mL 30 ML MUCOUS MEM (21:49)
--- NOTE | 2023-04-03 21:57 | P.PN_ITS ---
Subjective 2 Subjective: having some pain in his right hip, but overall doing okay. Denies chest pain or pressure, no trouble breathing. Denies any difficulties with dyspnea on ambulation on flat ground. Awaiting assessment by orthopedics and plans for hip fracture repair. Vitals/I&O/Wt Last Vital Signs Temp 97.7 F 04/03/23 20:30 Pulse 67 04/03/23 20:30 Resp 17 04/03/23 21:48 BP 98/64 04/03/23 20:30 Pulse Ox 93 04/03/23 20:30 O2 Del Method Room Air 04/03/23 20:30 O2 Flow Rate 6 04/03/23 18:48 04/03/23 04/03/23 04/03/23 06:59 14:59 22:59 Intake Total 1939 / 1939 Output Total 400 / 400 Balance 1539 / 1539 Weight last 48 hrs Weight 75.478 kg Weight 74.979 kg Weight 79.379 kg Physical Exam 2 Narrative: Accompanied by family. Const: COMMON NORMALS: patient oriented x3 and alert GENERAL APPEARANCE: c ooperative ORIENTATION/CONSCIOUSNESS: Yes awake HENMT: COMMON NORMALS: oropharynx normal Neck/C-Spine: COMMON NORMALS: no JVD Resp: COMMON NORMALS: normal respiratory effort and clear to auscultation bilaterally AUSCULTATION: clear to auscultation bilaterally Cardio: COMMON NORMALS: no JVD, regular rhythm, S1 normal heart sound present, S2 normal heart sound present and No murmurs present (Cardio) RHYTHM: regular rhythm HEART SOUNDS: S1 normal heart sound present and S2 normal heart sound present GI: COMMON NORMALS: Normal to inspection, nondistended, normoactive bowel sounds present, Soft to palpation and non-tender PALPATION: Yes Soft to palpation Extremity: COMMON NORMALS: no joint enlargement and no pedal edema OTHER: Shortened, everted right lower extremity. Warm, appears perfused. Neuro: COMMON NORMALS: patient oriented x3 and moves all extremities S ENSORIUM/ORIENTATION: Yes alert Skin: COMMON NORMALS: no rashes or lesions noted GENERAL SKIN EXAM: no rashes or lesions noted Urinary Catheter Management: Villanueva: Cath Placed During This Visit: yes Reason for Continuing Indwelling Catheter: Perioperative Use in Selected Surgeries Urinary Catheter Date of Insertion: 04/03/23 Urinary Catheter Time of Insertion: 04:38 Data 04/03/23 02:20 04/03/23 02:54 A&P Assessment and plan (1) Fracture of hip: Qualifiers: Encounter type: initial encounter Fracture type: closed Laterality: r ight Qualified Code(s): S72.001A - Fracture of unspecified part of neck of right femur, initial encounter for closed fracture Plan Right femoral neck fracture Right hip hemiarthroplasty today for displaced right hip fracture. Discussed with case management. Reviewed orthopedic documentation. Reviewed vitals, CBC, INR, CMP. Urine noted somewhat dark. Requested UA. Reviewed UA, with possible UTI, 15-25 WBC. Allergic to penicillin. Start cipro. Follow-up urine culture. Lovenox DVT prophylaxis. PT assessment. Case management consultation. Patient sustained a fall Patient has been falling lately TSH reviewed, noted normal. B12 reviewed, noted low. Give B12 IM. Patient is on phenytoin which can cause B12 deficiency, MCV is high normal, check TSH and B12 Antiepileptic levels requested. Patient is stating that he is DNR/DNI Carries history of dementia DVT prophylaxis: SCDs Continue his antiepileptics Along bowel regimen Attestations 2 Medical Necessity Statement*: Continue admission for assessment management following right hip fracture and repair, UTI. and High MDM includes amount and/or complexity of data reviewed/ordered [ previous or external records, resulted lab(s)/test(s), ordered lab(s)/test(s) and other healthcare professional discussion] as documented Diagnoses Fracture of hip S72.001A Encounter type: initial encounter Fracture type: closed Laterality: right
[2023-04-03] MEDS: ciprofloxacin 200 MG/100 ML PREMIX 100 MG IV (23:35)
[2023-04-04] VITALS (9 sets, daily range): BP systolic 92–120; BP diastolic 49–70; PULSE 70–91; RESP 16–18; TEMP 36.4–37.2; O2SAT 90–95
[2023-04-04] MEDS: tranexamic acid 1,000 MG/100 ML PREMIX 600 MG IV (01:19)
[2023-04-04] MEDS: clindamycin 900 MG/50 ML PREMIX 100 MG IV ×3 (02:31→17:01)
[2023-04-04] MEDS: oxyCODONE-APAP 10-325 mg Tablet 1 TAB PO ×3 (06:03→17:00)
[2023-04-04] MEDS: sodium chloride 0.9% 1,000 ML 75 ML IV (06:04)
[2023-04-04] MEDS: enoxaparin 30 mg/0.3 mL Syringe SUBCUT (06:04)
[2023-04-04] MEDS: iron polysaccharide complex 150 mg Capsule PO ×2 (08:11→16:59)
[2023-04-04] MEDS: carBAMazepine XR (12 HR) 100 mg Tablet PO ×2 (08:11→16:59)
[2023-04-04] MEDS: sennosides-docusate Tablet 1 TAB PO (08:12)
[2023-04-04] MEDS: PARoxetine 20 mg Tablet 10 MG PO (08:12)
[2023-04-04] MEDS: calcium carb-vit d 600mg/400unit 1 Tablet 1 EACH PO ×2 (08:12→17:00)
[2023-04-04] MEDS: multivitamin therapeutic Tablet 1 TAB PO (08:12)
[2023-04-04] MEDS: carBAMazepine XR (12 HR) 200 mg Tablet 400 MG PO ×2 (08:12→16:59)
[2023-04-04] MEDS: cyanocobalamin 1,000 mcg/mL SDV 1000 MCG IM (08:13)
[2023-04-04] MEDS: chlorhexidine gluconate 0.12% Btl 473 mL 30 ML MUCOUS MEM ×4 (08:15→21:55)
[2023-04-04] MEDS: mupirocin oint 22 gm 1 APPLIC NASAL ×2 (08:17→17:11)
--- NOTE | 2023-04-04 09:00 | PC.CHAP ---
Pastoral Care Encounter/Spiritual Assessment Type of Contact [] Declined rules examiner visit [] Patient/Family/Request visit [] Outpatient visit [] Follow-up visit [] Physician referral [] Code/Alert [] Routine visit [] Staff referral [] Actively dying [] Patient sleeping [] Family support [] [] Out of room [] Palliative care [] [x] Receiving care in room [] Pre-surgical visit [] Trauma [] Long length of stay [] ICU visit [] Other: Relational/Emotional Strength [] Patient feels connected with others/family/visitors/staff [] Distress [] Loneliness/isolation [] Abandonment Spirituality of Patient [] Person of Valeria [] Attends Mormon of their Valeria [] Believes in Prayer [] Reads Bible or Presybeterian materials [] There are Spiritual issues to be addressed Insulation Nozzleman Interventions [] Prayer [] Active listening [] Non-anxious presence [] Spiritual/emotional support [] Crisis/trauma care [] Spiritual counseling [] Bereavement support [] Provided bereavement packet [] Provided Bible/devotional materials [] Provided toy/stuffed animal, coloring book to patient or family member [] Provided Communion [] Anointing/[place] [] Salvation [] Completed spiritual assessment [] Other: Impact on Illness or Injury [] Angry [] Fearful [] Anxious [] Often cries [] Exhaustion [] Unable to work [] Unable to attend anabaptist [] Unable to walk/stand [] Unable to read [] Unable to drive [] Unable to eat/drink [] Unable to sleep [] Unable to be with family [] Patient intubated [] Other: Summary Time spent with patient
[2023-04-04] MEDS: ciprofloxacin 200 MG/100 ML PREMIX 100 MG IV ×2 (09:52→21:53)
--- NOTE | 2023-04-04 12:41 | PC.SOCIAL ---
IMM UPdate pg 2 of IMM updated and reviewed w/ patient. Copy provided and copy dated, initialed and placed in chart.
--- NOTE | 2023-04-04 13:36 | P.PN_ITS ---
Subjective 2 Subjective: Patient seen and examined this afternoon. He is gotten up with therapy. Overall doing well daughter at bedside. Dressings clean dry and intact. Pain controlled with medications. Vitals/I&O/Wt Last Vital Signs Temp 99 F 04/04/23 12:48 Pulse 81 04/04/23 12:48 Resp 18 04/04/23 12:48 BP 102/63 04/04/23 12:48 Pulse Ox 92 04/04/23 12:48 O2 Del Method Room Air 04/04/23 12:48 O2 Flow Rate 6 04/03/23 18:48 04/03/23 04/04/23 04/04/23 22:59 06:59 14:59 Intake Total 1939 / 1939 250 / 2189 1110 / 1110 Output Total 525 / 525 350 / 875 Balance 1414 / 1414 -100 / 1314 1110 / 1110 Weight last 48 hrs Weight 167 lb 1 oz Weight 166 lb 6.4 oz Weight 165 lb 4.8 oz Weight 175 lb Physical Exam 2 Narrative: Patient is awake and alert and responsive and able to follow commands he does have some mild dementia noted. He is able to follow commands. He is able to wiggle his toes as well as plantarflex and dorsiflex ankle to the right lower extremity has dressings on in place is clean dry and intact compartments are soft compressible. Normal postoperative swelling and ecchymosis noted around the right hip. Right lower extremity is warm well-perfused. Urinary Catheter Management: Villanueva: Cath Placed During This Visit: yes, but has since been removed by the nurse Reason for Continuing Indwelling Catheter: Decision to DC Catheter Urinary Catheter Date of Insertion: 04/03/23 Urinary Catheter Time of Insertion: 04:38 Date Urinary Catheter Removed: 04/04/23 Time Urinary Catheter Discontinued: 06:14 Data 04/04/23 13:23 04/04/23 13:23 Xray Ortho: My impression: Postoperative PACU x-rays reviewed and demonstrate a stable right hip hemiarthroplasty with appropriate cement mantle and appropriate leg lengths noted. No evidence of periprosthetic fracture or dislocation. A&P Assessment and plan (1) Fracture of hip: Qualifiers: Encounter type: initial encounter Fracture type: closed Laterality: r ight Qualified Code(s): S72.001A - Fracture of unspecified part of neck of right femur, initial encounter for closed fracture (2) Displaced fracture of right femoral neck: Plan Resume diet Internal medicine on board as primary X-rays reviewed Imaging reviewed DVT prophylaxis Weightbearing as tolerated right lower extremity Posterior hip precautions PT/OT Orthopedics will continue to follow on the floor tomorrow if he is doing well and stable from orthopedic standpoint tomorrow orthopedic surgery team will sign off and follow peripherally there is any questions pertaining to patient's care feel free to contact us. Dr. Houston my partner will round on patient tomorrow and anticipate signing off. Patient will follow in the orthopedic office in 2 weeks postoperatively. Attestations 2 Medical Necessity Statement*: Status post right hip hemiarthroplasty ongoing care Coding Level of Care Code Acute Code for [facility] Fwd Diagnoses Fracture of hip S72.001A Encounter type: initial encounter Fracture type: closed Laterality: right Displaced fracture of right femoral neck S72.001A Time Spent (min) 20
[2023-04-04 13:39] LABS: Basophils % 0.6 %; Eosinophils # 0.2 10^3/uL (0.0-0.8); Eosinophils % 2.6 %; Hematocrit 35.2 % (37-53); Lymphocytes # 0.5 10^3/uL (0.8-4.8); Lymphocytes % 7.9 %; Mean Corpuscular HGB Conc 33.8 g/dL (30-55); Mean Corpuscular Hemoglobin 33.4 pg (27-33); Mean Corpuscular Volume 98.9 fl (82-101); Mean Platelet Volume 10.1 fL (7.4-10.4); Monocytes # 0.2 10^3/uL (0.2-0.9); Monocytes % 3.4 %; Neutrophils # 5.48 10^3/uL (1.8-7.7); Neutrophils % 84.9 %; Nucleated Red Blood Cells % 0 %; Platelet Count 147 10^3/cmm (157-399); Red Blood Count 3.56 10^6/uL (3.85-5.65); Red Cell Distribution Width 13.4 % (12.1-15.1); White Blood Count 6.46 10^3/uL (3.29-11.43)
[2023-04-04] MEDS: phenytoin ER 100 mg Capsule PO ×2 (13:57→21:54)
[2023-04-04 14:19] LABS: Anion Gap 13.6 (5-19); Blood Urea Nitrogen 14 mg/dL (8-23); C Reactive Protein 195.3 mg/L (0.0-4.9); Calcium 8.1 mg/dL (8.5-10.5); Carbon Dioxide 21 mmol/L (22-29); Chloride 103 mmol/L (98-107); Glomerular Filtration Rate 83.9 mL/min (90-130); Glucose 128 mg/dL (65-115); Magnesium 1.9 mg/dL (1.7-2.3); Osmolality Calculated 280 mOsm/kg (285-295); Potassium 3.6 mmol/L (3.5-5.1); Sodium 134 mmol/L (136-145)
[2023-04-04] MEDS: haloperidol inj 5 mg/mL INJ 1 mL 2 MG IM (18:48)
--- NOTE | 2023-04-04 18:52 | PC.NURSE ---
Pt yelling, combative and climbing out of bed. Notified Dr. Ko and order for Haldol 2mg given.
--- NOTE | 2023-04-04 18:53 | PC.NURSE ---
Pt has not had a s/p void since catheter removal. Bladder scans show 150ml in bladder, on multiple attempts with multiple nurses. Notified Dr. Ko. States he would like a bladder scan again in 3 hours, and if >200ml, will require straight cath.
--- NOTE | 2023-04-04 21:43 | P.PN_ITS ---
Subjective 2 Subjective: This morning having right hip pain, otherwise states doing all right. No trouble breathing, no chest pain or pressure. Later in the day becoming confused, agitated and combative. Vitals/I&O/Wt Last Vital Signs Temp 98.5 F 04/04/23 20:00 Pulse 91 04/04/23 20:00 Resp 17 04/04/23 20:00 BP 120/69 04/04/23 20:00 Pulse Ox 95 04/04/23 20:00 O2 Del Method Room Air 04/04/23 20:00 O2 Flow Rate 6 04/03/23 18:48 04/04/23 04/04/23 04/04/23 06:59 14:59 22:59 Intake Total 250 / 2189 1110 / 1110 1502.5 / 2612.5 Output Total 350 / 875 Balance -100 / 1314 1110 / 1110 1502.5 / 2612.5 Weight last 48 hrs Weight 75.778 kg Weight 75.478 kg Weight 74.979 kg Weight 79.379 kg Physical Exam 2 Narrative: Accompanied by family. Const: COMMON NORMALS: patient oriented x3 and alert GENERAL APPEARANCE: c ooperative ORIENTATION/CONSCIOUSNESS: Yes awake HENMT: COMMON NORMALS: oropharynx normal Neck/C-Spine: COMMON NORMALS: no JVD Resp: COMMON NORMALS: normal respiratory effort and clear to auscultation bilaterally AUSCULTATION: clear to auscultation bilaterally Cardio: COMMON NORMALS: no JVD, regular rhythm, S1 normal heart sound present, S2 normal heart sound present and No murmurs present (Cardio) RHYTHM: regular rhythm HEART SOUNDS: S1 normal heart sound present and S2 normal heart sound present GI: COMMON NORMALS: Normal to inspection, nondistended, normoactive bowel sounds present, Soft to palpation and non-tender PALPATION: Yes Soft to palpation Extremity: COMMON NORMALS: no joint enlargement and no pedal edema OTHER: LE warm, perfused. Neuro: COMMON NORMALS: patient oriented x3 and moves all extremities S ENSORIUM/ORIENTATION: Yes alert Skin: COMMON NORMALS: no rashes or lesions noted GENERAL SKIN EXAM: no rashes or lesions noted Urinary Catheter Management: Villanueva: Cath Placed During This Visit: yes, but has since been removed by the nurse Reason for Continuing Indwelling Catheter: Decision to DC Catheter Urinary Catheter Date of Insertion: 04/03/23 Urinary Catheter Time of Insertion: 04:38 Date Urinary Catheter Removed: 04/04/23 Time Urinary Catheter Discontinued: 06:14 Data 04/04/23 13:23 04/04/23 13:23 A&P Assessment and plan (1) Fracture of hip: Qualifiers: Encounter type: initial encounter Fracture type: closed Laterality: r ight Qualified Code(s): S72.001A - Fracture of unspecified part of neck of right femur, initial encounter for closed fracture Plan Right femoral neck fracture S/p Right hip hemiarthroplasty for displaced right hip fracture. Reviewed orthopedic note. Reviewed vitals, CBC, BMP, magnesium. Noted acute anemia after fracture, surgery, 11.9. Recheck CBC requested. Platelets reviewed, noted 147. Follow- up. Villanueva catheter was removed today, subsequently without voiding, reassessed with bladder scan, 100, but subsequently not allowing reassessment, becoming agitated, combative, with acute encephalopathy, with underlying dementia at risk of delirium related to acute medical condition, hospitalization, UTI, additionally requiring pain medication this morning. required a dose of Haldol. Risk of QT prolongation. Reviewed QT interval on EKG. One-to-one sitter requested. Repeat bladder scan 150 mL. Repeat as needed scans and straight catheter requested in case more than 200 ml on scan. was assessed by PT, discussed with physical therapy. he tells me he did not do very well, will be requiring rehabilitation. Discussed with case management. continue treatment of UTI. Follow-up urine culture. Reviewed so far, pending. Lovenox DVT prophylaxis. Patient sustained a fall Patient has been falling lately TSH reviewed, noted normal. B12 reviewed, noted low. Give B12 IM. Patient is on phenytoin which can cause B12 deficiency, MCV is high normal, check TSH and B12 Antiepileptic levels requested. Patient is stating that he is DNR/DNI Carries history of dementia DVT prophylaxis: SCDs Continue his antiepileptics Along bowel regimen Attestations 2 Medical Necessity Statement*: Continue admission for assessment and management after right hip fracture and repair, acute encephalopathy, UTI, mobilization and functional assessment, post discharge planning and arrangements. Diagnoses Fracture of hip S72.001A Encounter type: initial encounter Fracture type: closed Laterality: right
[2023-04-04] MEDS: TRAMadol 50 mg Tablet PO (21:54)
[2023-04-04] MEDS: donepezil 5 MG Tablet 10 MG PO (21:54)
[2023-04-05] VITALS (10 sets, daily range): BP systolic 102–145; BP diastolic 59–74; PULSE 70–90; RESP 16–18; TEMP 36.7–37.2; O2SAT 94–98
[2023-04-05] MEDS: oxyCODONE-APAP 10-325 mg Tablet 1 TAB PO ×3 (02:32→14:04)
[2023-04-05] MEDS: sodium chloride 0.9% 1,000 ML 75 ML IV ×2 (02:37→16:32)
[2023-04-05 05:15] LABS: Basophils % 0.5 %; Eosinophils # 0.2 10^3/uL (0.0-0.8); Eosinophils % 2.9 %; Hematocrit 32.4 % (37-53); Lymphocytes # 0.6 10^3/uL (0.8-4.8); Lymphocytes % 8.6 %; Mean Corpuscular HGB Conc 33.6 g/dL (30-55); Mean Corpuscular Hemoglobin 33.2 pg (27-33); Mean Corpuscular Volume 98.8 fl (82-101); Mean Platelet Volume 9.9 fL (7.4-10.4); Monocytes # 0.4 10^3/uL (0.2-0.9); Monocytes % 6.2 %; Neutrophils # 5.29 10^3/uL (1.8-7.7); Neutrophils % 81.3 %; Nucleated Red Blood Cells % 0 %; Platelet Count 135 10^3/cmm (157-399); Red Blood Count 3.28 10^6/uL (3.85-5.65); Red Cell Distribution Width 13.4 % (12.1-15.1)
[2023-04-05 05:35] LABS: Anion Gap 12.4 (5-19); Blood Urea Nitrogen 13 mg/dL (8-23); Calcium 7.6 mg/dL (8.5-10.5); Carbon Dioxide 21 mmol/L (22-29); Chloride 105 mmol/L (98-107); Glucose 120 mg/dL (65-115); Osmolality Calculated 281 mOsm/kg (285-295); Potassium 3.4 mmol/L (3.5-5.1); Sodium 135 mmol/L (136-145)
[2023-04-05] MEDS: enoxaparin 30 mg/0.3 mL Syringe SUBCUT (06:15)
[2023-04-05] MEDS: carBAMazepine XR (12 HR) 200 mg Tablet 400 MG PO ×2 (08:24→17:45)
[2023-04-05] MEDS: carBAMazepine XR (12 HR) 100 mg Tablet PO ×2 (08:24→17:46)
[2023-04-05] MEDS: PARoxetine 20 mg Tablet 10 MG PO (08:24)
[2023-04-05] MEDS: calcium carb-vit d 600mg/400unit 1 Tablet 1 EACH PO ×2 (08:25→17:45)
[2023-04-05] MEDS: multivitamin therapeutic Tablet 1 TAB PO (08:25)
[2023-04-05] MEDS: chlorhexidine gluconate 0.12% Btl 473 mL 30 ML MUCOUS MEM ×4 (08:26→21:59)
[2023-04-05] MEDS: iron polysaccharide complex 150 mg Capsule PO ×2 (08:26→17:46)
[2023-04-05] MEDS: mupirocin oint 22 gm 1 APPLIC NASAL ×2 (08:27→17:47)
[2023-04-05] MEDS: potassium chloride ER 20 mEq Tablet PO (10:43)
[2023-04-05] MEDS: ciprofloxacin 200 MG/100 ML PREMIX 100 MG IV ×2 (10:43→21:58)
[2023-04-05] MEDS: phenytoin ER 100 mg Capsule PO ×2 (14:04→21:58)
--- NOTE | 2023-04-05 14:04 | P.PN_ITS ---
Subjective 2 Subjective: Patient's been up with a walker pain is controlled. No complaints at this time Vitals/I&O/Wt Last Vital Signs Temp 98.7 F 04/05/23 04:00 Pulse 70 04/05/23 07:18 Resp 16 04/05/23 08:23 BP 108/61 04/05/23 04:00 Pulse Ox 94 04/05/23 07:18 O2 Del Method Room Air 04/05/23 07:18 O2 Flow Rate 6 04/03/23 18:48 04/04/23 04/05/23 04/05/23 22:59 06:59 14:59 Intake Total 1502.5 / 2612.5 101.25 / 2713.75 340 / 340 Output Total 200 / 200 325 / 525 Balance 1302.5 / 2412.5 -223.75 / 2188.75 340 / 340 Weight last 48 hrs Weight 163 lb 9 oz Weight 167 lb 1 oz Physical Exam 2 Narrative: Dressing clean dry and intact currently in bed watching TV. Was up earlier with walker. Patient stated it was a little rough but he was able to walk. Urinary Catheter Management: Villanueva: Cath Placed During This Visit: yes, but has since been removed by the nurse Reason for Continuing Indwelling Catheter: Decision to DC Catheter Urinary Catheter Date of Insertion: 04/03/23 Urinary Catheter Time of Insertion: 04:38 Date Urinary Catheter Removed: 04/04/23 Time Urinary Catheter Discontinued: 06:14 Data 04/05/23 04:53 04/05/23 04:53 Micro: Microbiology 04/03/23 10:30 Urine Culture - Preliminary Urine,Clean Catch A&P Assessment and plan (1) Encounter for postoperative care: Postop day #2 right hip hemiarthroplasty Continue to get up with physical therapy Encouraged incentive spirometer Attestations 2 Medical Necessity Statement*: Per primary service Coding Level of Care Code Acute Code for [facility] Fwd Diagnoses Encounter for postoperative care Z48.89
[2023-04-05] MEDS: TRAMadol 50 mg Tablet PO (14:58)
--- NOTE | 2023-04-05 17:31 | P.PN_ITS ---
Subjective 2 Subjective: Still having pain in his right hip this morning. Later on reporting pain did not respond to [place] consistent milligram) or tramadol. Today he is awake and alert, lucid per discussion with his daughter. Vitals/I&O/Wt Last Vital Signs Temp 98.1 F 04/05/23 15:38 Pulse 85 04/05/23 15:38 Resp 16 04/05/23 15:38 BP 102/59 04/05/23 15:38 Pulse Ox 96 04/05/23 15:38 O2 Del Method Room Air 04/05/23 15:38 O2 Flow Rate 6 04/03/23 18:48 04/05/23 04/05/23 04/05/23 06:59 14:59 22:59 Intake Total 101.25 / 2713.75 580 / 580 1001.25 / 1581.25 Output Total 325 / 525 Balance -223.75 / 2188.75 580 / 580 1001.25 / 1581.25 Weight last 48 hrs Weight 74.191 kg Weight 75.778 kg Physical Exam 2 Narrative: Accompanied by his daughter. Const: COMMON NORMALS: patient oriented x3 and alert GENERAL APPEARANCE: c ooperative ORIENTATION/CONSCIOUSNESS: Yes awake HENMT: COMMON NORMALS: oropharynx normal Neck/C-Spine: COMMON NORMALS: no JVD Resp: COMMON NORMALS: normal respiratory effort and clear to auscultation bilaterally AUSCULTATION: clear to auscultation bilaterally Cardio: COMMON NORMALS: no JVD, regular rhythm, S1 normal heart sound present, S2 normal heart sound present and No murmurs present (Cardio) RHYTHM: regular rhythm HEART SOUNDS: S1 normal heart sound present and S2 normal heart sound present GI: COMMON NORMALS: Normal to inspection, nondistended, normoactive bowel sounds present, Soft to palpation and non-tender PALPATION: Yes Soft to palpation Extremity: COMMON NORMALS: no joint enlargement and no pedal edema OTHER: LE warm, perfused. Neuro: COMMON NORMALS: patient oriented x3 and moves all extremities S ENSORIUM/ORIENTATION: Yes alert Skin: COMMON NORMALS: no rashes or lesions noted GENERAL SKIN EXAM: no rashes or lesions noted Urinary Catheter Management: Villanueva: Cath Placed During This Visit: yes, but has since been removed by the nurse Reason for Continuing Indwelling Catheter: Decision to DC Catheter Urinary Catheter Date of Insertion: 04/03/23 Urinary Catheter Time of Insertion: 04:38 Date Urinary Catheter Removed: 04/04/23 Time Urinary Catheter Discontinued: 06:14 Data 04/05/23 04:53 04/05/23 04:53 Micro: Microbiology 04/03/23 10:30 Urine Culture - Preliminary Urine,Clean Catch A&P Assessment and plan (1) Fracture of hip: Qualifiers: Encounter type: initial encounter Fracture type: closed Laterality: r ight Qualified Code(s): S72.001A - Fracture of unspecified part of neck of right femur, initial encounter for closed fracture Plan Right femoral neck fracture Reviewed vitals, CBC, noted worsening anemia noted to 10.9 on hemoglobin. Platelets reviewed, 135. Reassess CBC again. At risk of DVT, on Lovenox prophylaxis, at risk of additional blood loss. Reviewed orthopedic note. S/p Right hip hemiarthroplasty for displaced right hip fracture. Acute encephalopathy so far resolved lucid today per history obtained from his daughter. At risk of delirium. Continue to reorient. Mobilize. Continue work with PT. Arrangements for rehabilitation. Continue treatment of UTI. Follow-up urine culture. Reviewed so far, pending. Lovenox DVT prophylaxis. Reviewed chemistry, renal function WNL. Repeat chemistry. Monitor for urinary retention. Hypokalemia: Replace potassium. Patient sustained a fall Patient has been falling lately TSH reviewed, noted normal. B12 reviewed, noted low. Give B12 IM. Patient is on phenytoin which can cause B12 deficiency, MCV is high normal, check TSH and B12 Antiepileptic levels requested. Patient is stating that he is DNR/DNI Carries history of dementia DVT prophylaxis: SCDs Continue his antiepileptics Along bowel regimen Attestations 2 Medical Necessity Statement*: Continue admission for assessment management following right hip fracture and repair. Post discharge planning and arrangements. Diagnoses Fracture of hip S72.001A Encounter type: initial encounter Fracture type: closed Laterality: right
[2023-04-05] MEDS: donepezil 5 MG Tablet 10 MG PO (21:58)
[2023-04-06] VITALS (9 sets, daily range): BP systolic 114–136; BP diastolic 65–74; PULSE 71–95; RESP 16–18; TEMP 36.6–36.8; O2SAT 93–98
[2023-04-06] MEDS: enoxaparin 30 mg/0.3 mL Syringe SUBCUT (05:32)
[2023-04-06 06:17] LABS: Basophils % 0.7 %; Eosinophils # 0.3 10^3/uL (0.0-0.8); Eosinophils % 4.3 %; Hematocrit 32.5 % (37-53); Mean Corpuscular HGB Conc 33.2 g/dL (30-55); Mean Corpuscular Hemoglobin 33.3 pg (27-33); Mean Corpuscular Volume 100.3 fl (82-101); Mean Platelet Volume 9.8 fL (7.4-10.4); Monocytes # 0.7 10^3/uL (0.2-0.9); Monocytes % 11.8 %; Neutrophils # 3.88 10^3/uL (1.8-7.7); Nucleated Red Blood Cells % 0 %; Platelet Count 149 10^3/cmm (157-399); Red Blood Count 3.24 10^6/uL (3.85-5.65); Red Cell Distribution Width 13.7 % (12.1-15.1); White Blood Count 5.87 10^3/uL (3.29-11.43)
[2023-04-06 06:30] LABS: Anion Gap 10.8 (5-19); Blood Urea Nitrogen 11 mg/dL (8-23); Carbon Dioxide 24 mmol/L (22-29); Chloride 105 mmol/L (98-107); Creatinine Clr Calc Pharmacy 93.9175; Glomerular Filtration Rate 112.1 mL/min (90-130); Glucose 114 mg/dL (65-115); Osmolality Calculated 282 mOsm/kg (285-295); Potassium 3.8 mmol/L (3.5-5.1); Sodium 136 mmol/L (136-145)
--- NOTE | 2023-04-06 07:13 | P.PN_ITS ---
Subjective 2 Subjective: Patient complaining of right hip pain that is relatively controlled however patient's been up with physical therapy. Vitals/I&O/Wt Last Vital Signs Temp 97.8 F 04/06/23 04:00 Pulse 74 04/06/23 04:00 Resp 16 04/06/23 04:00 BP 116/69 04/06/23 04:00 Pulse Ox 93 04/06/23 04:00 O2 Del Method Room Air 04/05/23 19:43 O2 Flow Rate 6 04/03/23 18:48 04/05/23 04/06/23 04/06/23 22:59 06:59 14:59 Intake Total 1481.25 / 2061.25 100 / 2161.25 Balance 1481.25 / 2061.25 100 / 2161.25 Weight last 48 hrs Weight 172 lb 11.2 oz Weight 163 lb 9 oz Physical Exam 2 Narrative: Wound clean dry and intact dorsiflexion plantarflexion his right foot. Urinary Catheter Management: Villanueva: Cath Placed During This Visit: yes, but has since been removed by the nurse Reason for Continuing Indwelling Catheter: Decision to DC Catheter Urinary Catheter Date of Insertion: 04/03/23 Urinary Catheter Time of Insertion: 04:38 Date Urinary Catheter Removed: 04/04/23 Time Urinary Catheter Discontinued: 06:14 Data 04/06/23 05:46 04/06/23 05:46 Micro: Microbiology 04/03/23 10:30 Urine Culture - Preliminary Urine,Clean Catch A&P Assessment and plan (1) Encounter for postoperative care: Postop day #3 right hip hemiarthroplasty. Okay to discharge from an orthopedic standpoint Attestations 2 Medical Necessity Statement*: Per primary service Coding Level of Care Code Acute Code for Chg Fwd Diagnoses Encounter for postoperative care Z48.89
[2023-04-06] MEDS: polyethylene glycol 3350 Pkt 17 gm PO (08:26)
[2023-04-06] MEDS: PARoxetine 20 mg Tablet 10 MG PO (08:26)
[2023-04-06] MEDS: calcium carb-vit d 600mg/400unit 1 Tablet 1 EACH PO ×2 (08:26→17:19)
[2023-04-06] MEDS: carBAMazepine XR (12 HR) 100 mg Tablet PO ×2 (08:26→17:19)
[2023-04-06] MEDS: iron polysaccharide complex 150 mg Capsule PO ×2 (08:27→17:19)
[2023-04-06] MEDS: multivitamin therapeutic Tablet 1 TAB PO (08:27)
[2023-04-06] MEDS: lidocaine 5% Patch 1 PATCH TOPICAL (08:27)
[2023-04-06] MEDS: sennosides-docusate Tablet 1 TAB PO (08:27)
[2023-04-06] MEDS: carBAMazepine XR (12 HR) 200 mg Tablet 400 MG PO ×2 (08:30→17:19)
[2023-04-06] MEDS: sodium chloride 0.9% 1,000 ML 75 ML IV ×2 (08:31→21:19)
[2023-04-06] MEDS: mupirocin oint 22 gm 1 APPLIC NASAL ×2 (08:34→17:20)
[2023-04-06] MEDS: chlorhexidine gluconate 0.12% Btl 473 mL 30 ML MUCOUS MEM ×4 (08:34→21:20)
[2023-04-06] MEDS: ciprofloxacin 200 MG/100 ML PREMIX 100 MG IV ×2 (10:19→21:18)
--- NOTE | 2023-04-06 10:52 | PC.OT ---
Patient refused to participate in OT this morning. He states, I've already walked 3/4 of a mile with PT and I'm tired. Besides my daughter can put on my socks.
[2023-04-06] MEDS: phenytoin ER 100 mg Capsule PO ×2 (14:16→21:17)
[2023-04-06] MEDS: donepezil 5 MG Tablet 10 MG PO (21:17)
--- NOTE | 2023-04-06 21:37 | P.PN_ITS ---
Subjective 2 Subjective: He states he still gets bothersome pain, but now more so with exertion, not as much at rest. He states Dilaudid is working better. Denies chest pain or pressure. No trouble breathing. Vitals/I&O/Wt Last Vital Signs Temp 98 F 04/06/23 20:00 Pulse 89 04/06/23 20:14 Resp 18 04/06/23 20:14 BP 126/74 04/06/23 20:00 Pulse Ox 96 04/06/23 20:14 O2 Del Method Room Air 04/06/23 20:14 O2 Flow Rate 6 04/03/23 18:48 04/06/23 04/06/23 04/06/23 06:59 14:59 22:59 Intake Total 100 / 2161.25 1447.5 / 1447.5 1200 / 2647.5 Balance 100 / 2161.25 1447.5 / 1447.5 1200 / 2647.5 Weight last 48 hrs Weight 78.335 kg Weight 74.191 kg Physical Exam 2 Const: COMMON NORMALS: patient oriented x3 and alert GENERAL APPEARANCE: c ooperative ORIENTATION/CONSCIOUSNESS: Yes awake HENMT: COMMON NORMALS: oropharynx normal Neck/C-Spine: COMMON NORMALS: no JVD Resp: COMMON NORMALS: normal respiratory effort and clear to auscultation bilaterally AUSCULTATION: clear to auscultation bilaterally Cardio: COMMON NORMALS: no JVD, regular rhythm, S1 normal heart sound present, S2 normal heart sound present and No murmurs present (Cardio) RHYTHM: regular rhythm HEART SOUNDS: S1 normal heart sound present and S2 normal heart sound present GI: COMMON NORMALS: Normal to inspection, nondistended, normoactive bowel sounds present, Soft to palpation and non-tender PALPATION: Yes Soft to palpation Extremity: COMMON NORMALS: no joint enlargement and no pedal edema OTHER: LE warm, perfused. No edema. Neuro: COMMON NORMALS: patient oriented x3 and moves all extremities S ENSORIUM/ORIENTATION: Yes alert Skin: COMMON NORMALS: no rashes or lesions noted GENERAL SKIN EXAM: no rashes or lesions noted Urinary Catheter Management: Villanueva: Cath Placed During This Visit: yes, but has since been removed by the nurse Reason for Continuing Indwelling Catheter: Decision to DC Catheter Urinary Catheter Date of Insertion: 04/03/23 Urinary Catheter Time of Insertion: 04:38 Date Urinary Catheter Removed: 04/04/23 Time Urinary Catheter Discontinued: 06:14 Data 04/06/23 05:46 04/06/23 05:46 Micro: Microbiology 04/03/23 10:30 Urine Culture - Final Urine,Clean Catch A&P Assessment and plan (1) Fracture of hip: Qualifiers: Encounter type: initial encounter Fracture type: closed Laterality: r ight Qualified Code(s): S72.001A - Fracture of unspecified part of neck of right femur, initial encounter for closed fracture Plan Right femoral neck fracture reviewed vitals, CBC, BMP. Noted anemia appears to be stabilizing, hemoglobin 10.8. Reviewed platelets, 149. Repeat CBC requested. At risk of DVT, on Lovenox prophylaxis, at risk of additional blood loss. Reviewed orthopedic documentation. Okay to discharge from orthopedic perspective. Dilaudid for pain control as morphine was not effective. At risk of urine retention, monitor for symptoms. S/p Right hip hemiarthroplasty for displaced right hip fracture. Acute encephalopathy resolved. At risk of delirium. Continue to reorient. Mobilize. Continue work with PT. Pending arrangements for SNF. Continue treatment of UTI. Urine culture reviewed so far without growth. Monitor for urine retention. Hypokalemia: Replace potassium. Patient sustained a fall Patient has been falling lately TSH reviewed, noted normal. B12 reviewed, noted low. Given a dose of B12 IM. Patient is on phenytoin which can cause B12 deficiency Antiepileptic levels requested. Patient is stating that he is DNR/DNI Carries history of dementia Continue his antiepileptics Attestations 2 Medical Necessity Statement*: Continue admission for assessment management following right hip fracture and repair. Post discharge planning and arrangements. and High MDM includes described risk of complication, morbidity or mortality of management as documented Diagnoses Fracture of hip S72.001A Encounter type: initial encounter Fracture type: closed Laterality: right
[2023-04-07] VITALS (10 sets, daily range): BP systolic 114–143; BP diastolic 71–80; PULSE 72–84; RESP 16–18; TEMP 36.4–36.8; O2SAT 96–99; BMI 25.0
[2023-04-07 05:24] LABS: Basophils % 0.7 %; Eosinophils # 0.3 10^3/uL (0.0-0.8); Eosinophils % 6.1 %; Hematocrit 33.9 % (37-53); Lymphocytes # 0.9 10^3/uL (0.8-4.8); Lymphocytes % 16.1 %; Mean Corpuscular HGB Conc 33.9 g/dL (30-55); Mean Corpuscular Hemoglobin 33.3 pg (27-33); Mean Corpuscular Volume 98.3 fl (82-101); Mean Platelet Volume 10.1 fL (7.4-10.4); Monocytes # 0.7 10^3/uL (0.2-0.9); Monocytes % 12.9 %; Neutrophils # 3.56 10^3/uL (1.8-7.7); Neutrophils % 63.8 %; Nucleated Red Blood Cells % 0 %; Platelet Count 155 10^3/cmm (157-399); Red Blood Count 3.45 10^6/uL (3.85-5.65); Red Cell Distribution Width 13.4 % (12.1-15.1); White Blood Count 5.58 10^3/uL (3.29-11.43)
[2023-04-07] MEDS: enoxaparin 30 mg/0.3 mL Syringe SUBCUT (06:08)
[2023-04-07] MEDS: sennosides-docusate Tablet 1 TAB PO (08:21)
[2023-04-07] MEDS: iron polysaccharide complex 150 mg Capsule PO ×2 (08:21→17:29)
[2023-04-07] MEDS: calcium carb-vit d 600mg/400unit 1 Tablet 1 EACH PO ×2 (08:21→17:29)
[2023-04-07] MEDS: multivitamin therapeutic Tablet 1 TAB PO (08:21)
[2023-04-07] MEDS: carBAMazepine XR (12 HR) 100 mg Tablet PO ×2 (08:21→17:29)
[2023-04-07] MEDS: carBAMazepine XR (12 HR) 200 mg Tablet 400 MG PO ×2 (08:21→17:29)
[2023-04-07] MEDS: PARoxetine 20 mg Tablet 10 MG PO (08:21)
[2023-04-07] MEDS: mupirocin oint 22 gm 1 APPLIC NASAL ×2 (08:25→17:29)
[2023-04-07] MEDS: chlorhexidine gluconate 0.12% Btl 473 mL 30 ML MUCOUS MEM ×4 (08:25→21:03)
[2023-04-07] MEDS: ciprofloxacin 200 MG/100 ML PREMIX 100 MG IV ×2 (10:50→22:00)
[2023-04-07] MEDS: cyanocobalamin 1,000 mcg/mL SDV 1000 MCG IM (12:21)
[2023-04-07] MEDS: phenytoin ER 100 mg Capsule PO ×2 (14:40→21:02)
--- NOTE | 2023-04-07 15:58 | PC.SOCIAL ---
IMM updated, signed and copy given to patient and placed in chart.
--- NOTE | 2023-04-07 17:35 | P.PN_ITS ---
Subjective 2 Subjective: Hospital course, labs appreciated. Sitting in chair. Worked with physical therapy. Family at bedside. Denies new complaints. Denies any nausea, vomiting, headache. Pain is well-controlled. On room air. Blood work appreciated. Vitals/I&O/Wt Last Vital Signs Temp 97.6 F 04/07/23 12:00 Pulse 72 04/07/23 12:00 Resp 18 04/07/23 12:21 BP 122/74 04/07/23 12:00 Pulse Ox 98 04/07/23 12:00 O2 Del Method Room Air 04/07/23 12:00 O2 Flow Rate 6 04/03/23 18:48 04/07/23 04/07/23 04/07/23 06:59 14:59 22:59 Intake Total 1716 / 1716 Output Total 1000 / 1000 Balance 716 / 716 Weight last 48 hrs Weight 79.016 kg Weight 78.335 kg Physical Exam 2 Narrative: Accompanied by his daughter. Const: COMMON NORMALS: patient oriented x3 and alert GENERAL APPEARANCE: c ooperative ORIENTATION/CONSCIOUSNESS: Yes awake HENMT: COMMON NORMALS: oropharynx normal Neck/C-Spine: COMMON NORMALS: no JVD Resp: COMMON NORMALS: normal respiratory effort and clear to auscultation bilaterally AUSCULTATION: clear to auscultation bilaterally Cardio: COMMON NORMALS: no JVD, regular rhythm, S1 normal heart sound present, S2 normal heart sound present and No murmurs present (Cardio) RHYTHM: regular rhythm HEART SOUNDS: S1 normal heart sound present and S2 normal heart sound present GI: COMMON NORMALS: Normal to inspection, nondistended, normoactive bowel sounds present, Soft to palpation and non-tender PALPATION: Yes Soft to palpation Extremity: COMMON NORMALS: no joint enlargement and no pedal edema OTHER: LE warm, perfused. No edema. Neuro: COMMON NORMALS: patient oriented x3 and moves all extremities S ENSORIUM/ORIENTATION: Yes alert Skin: COMMON NORMALS: no rashes or lesions noted GENERAL SKIN EXAM: no rashes or lesions noted Urinary Catheter Management: Villanueva: Cath Placed During This Visit: yes, but has since been removed by the nurse Reason for Continuing Indwelling Catheter: Decision to DC Catheter Urinary Catheter Date of Insertion: 04/03/23 Urinary Catheter Time of Insertion: 04:38 Date Urinary Catheter Removed: 04/04/23 Time Urinary Catheter Discontinued: 06:14 Data 04/07/23 04:54 04/06/23 05:46 A&P Assessment and plan (1) Fracture of hip: Post-ORIF. Hemoglobin stable. Working well with PT. Continue anticoagulation with Lovenox. Awaiting placement to SNF for further rehabitation. Qualifiers: Encounter type: initial encounter Fracture type: closed Laterality: r ight Qualified Code(s): S72.001A - Fracture of unspecified part of neck of right femur, initial encounter for closed fracture Plan UTI: Urine culture negative. Continue with ciprofloxacin to finish a 5-day course. Villanueva removed postoperatively. Vitamin B12 deficiency: Start on IM cyanocobalamin repletion. Medication changes and chronic medication discussed in detail with patient's sister at bedside. All the questions were answered. Continue chronic antiepileptics. DNR/DNI Regular diet Lovenox for DVT prophylaxis Attestations 2 Medical Necessity Statement*: Requires further hospitalization for postoperative care, post-ORIF for safe discharge planning is sought. Diagnoses Fracture of hip S72.001A Encounter type: initial encounter Fracture type: closed Laterality: right
[2023-04-07] MEDS: donepezil 5 MG Tablet 10 MG PO (21:02)
[2023-04-08] VITALS (9 sets, daily range): BP systolic 102–118; BP diastolic 68–73; PULSE 74–86; RESP 16–18; TEMP 36.5–36.9; O2SAT 91–98
[2023-04-08 05:13] LABS: Basophils # 0.1 10^3/uL (0.0-0.1); Basophils % 0.9 %; Eosinophils # 0.4 10^3/uL (0.0-0.8); Eosinophils % 5.7 %; Hematocrit 34.4 % (37-53); Mean Corpuscular HGB Conc 33.4 g/dL (30-55); Mean Corpuscular Hemoglobin 33.2 pg (27-33); Mean Corpuscular Volume 99.4 fl (82-101); Mean Platelet Volume 10.2 fL (7.4-10.4); Monocytes # 0.9 10^3/uL (0.2-0.9); Monocytes % 12.5 %; Neutrophils # 4.49 10^3/uL (1.8-7.7); Neutrophils % 65.2 %; Nucleated Red Blood Cells % 0 %; Platelet Count 191 10^3/cmm (157-399); Red Blood Count 3.46 10^6/uL (3.85-5.65); Red Cell Distribution Width 13.6 % (12.1-15.1); White Blood Count 6.88 10^3/uL (3.29-11.43)
[2023-04-08 05:39] LABS: Alanine Aminotransferase 16 U/L (0-41); Albumin Level 3.2 g/dL (3.5-5.2); Alkaline Phosphatase 72 U/L (40-130); Anion Gap 15.3 (5-19); Aspartate Amino Transferase 20 U/L (0-40); Blood Urea Nitrogen 12 mg/dL (8-23); Calcium 8.8 mg/dL (8.5-10.5); Carbon Dioxide 26 mmol/L (22-29); Chloride 99 mmol/L (98-107); Chol HDL Ratio 3.08 mg/dL (1.0-5.00); Cholesterol 148 mg/dL (0-200); Globulin 2.8 g/dL (1.3-4.6); Glomerular Filtration Rate 96.1 mL/min (90-130); Glucose 111 mg/dL (65-115); HDL Cholesterol 48 mg/dL (60-100); LDL Cholesterol Calculated 88 mg/dL (50-129); Osmolality Calculated 282 mOsm/kg (285-295); Potassium 4.3 mmol/L (3.5-5.1); Sodium 136 mmol/L (136-145); Total Bilirubin 0.3 mg/dL (0.15-1.2); Triglycerides 61 mg/dL (0-150); VLDL Cholestrol Calculation 12 mg/dL (0-30)
[2023-04-08] MEDS: enoxaparin 30 mg/0.3 mL Syringe SUBCUT (05:39)
[2023-04-08 05:54] LABS: Folate Level 3.4 ng/mL (4.5-32.2)
[2023-04-08] MEDS: carBAMazepine XR (12 HR) 100 mg Tablet PO ×2 (08:41→17:05)
[2023-04-08] MEDS: chlorhexidine gluconate 0.12% Btl 473 mL 30 ML MUCOUS MEM ×3 (08:41→20:39)
[2023-04-08] MEDS: PARoxetine 20 mg Tablet 10 MG PO (08:42)
[2023-04-08] MEDS: calcium carb-vit d 600mg/400unit 1 Tablet 1 EACH PO ×2 (08:42→17:05)
[2023-04-08] MEDS: cyanocobalamin 1,000 mcg/mL SDV 1000 MCG IM (08:42)
[2023-04-08] MEDS: carBAMazepine XR (12 HR) 200 mg Tablet 400 MG PO ×2 (08:42→17:05)
[2023-04-08] MEDS: iron polysaccharide complex 150 mg Capsule PO ×2 (08:42→17:05)
[2023-04-08] MEDS: sennosides-docusate Tablet 1 TAB PO (08:42)
[2023-04-08] MEDS: mupirocin oint 22 gm 1 APPLIC NASAL ×2 (08:42→17:05)
[2023-04-08] MEDS: ciprofloxacin 200 MG/100 ML PREMIX 100 MG IV ×2 (11:02→21:19)
--- NOTE | 2023-04-08 15:01 | P.PN_ITS ---
Subjective 2 Subjective: No acute events overnight. Patient has remained hemodynamically stable and afebrile. Continues to work well with physical therapy. Seen with sister at bedside. Vitals/I&O/Wt Last Vital Signs Temp 98.1 F 04/08/23 12:00 Pulse 82 04/08/23 12:00 Resp 16 04/08/23 12:00 BP 116/73 04/08/23 08:00 Pulse Ox 91 04/08/23 12:00 O2 Del Method Room Air 04/08/23 12:00 O2 Flow Rate 6 04/03/23 18:48 04/08/23 04/08/23 04/08/23 06:59 14:59 22:59 Intake Total 100 / 2536 940 / 940 Balance 100 / 936 940 / 940 Weight last 48 hrs Weight 79.889 kg Weight 79.016 kg Physical Exam 2 Narrative: Accompanied by his daughter. Const: COMMON NORMALS: patient oriented x3 and alert GENERAL APPEARANCE: c ooperative ORIENTATION/CONSCIOUSNESS: Yes awake HENMT: COMMON NORMALS: oropharynx normal Neck/C-Spine: COMMON NORMALS: no JVD Resp: COMMON NORMALS: normal respiratory effort and clear to auscultation bilaterally AUSCULTATION: clear to auscultation bilaterally Cardio: COMMON NORMALS: no JVD, regular rhythm, S1 normal heart sound present, S2 normal heart sound present and No murmurs present (Cardio) RHYTHM: regular rhythm HEART SOUNDS: S1 normal heart sound present and S2 normal heart sound present GI: COMMON NORMALS: Normal to inspection, nondistended, normoactive bowel sounds present, Soft to palpation and non-tender PALPATION: Yes Soft to palpation Extremity: COMMON NORMALS: no joint enlargement and no pedal edema OTHER: LE warm, perfused. No edema. Neuro: COMMON NORMALS: patient oriented x3 and moves all extremities S ENSORIUM/ORIENTATION: Yes alert Skin: COMMON NORMALS: no rashes or lesions noted GENERAL SKIN EXAM: no rashes or lesions noted Urinary Catheter Management: Villanueva: Cath Placed During This Visit: yes, but has since been removed by the nurse Reason for Continuing Indwelling Catheter: Decision to DC Catheter Urinary Catheter Date of Insertion: 04/03/23 Urinary Catheter Time of Insertion: 04:38 Date Urinary Catheter Removed: 04/04/23 Time Urinary Catheter Discontinued: 06:14 Data 04/08/23 04:51 12/12/23 04:51 A&P Assessment and plan (1) Fracture of hip: Post-ORIF. Hemoglobin stable. Working well with PT. Continue anticoagulation with Lovenox. Awaiting placement to SNF for further rehabitation. Qualifiers: Encounter type: initial encounter Fracture type: closed Laterality: r ight Qualified Code(s): S72.001A - Fracture of unspecified part of neck of right femur, initial encounter for closed fracture Plan UTI: Urine culture negative. Continue with ciprofloxacin to finish a 5-day course. Villanueva removed postoperatively. Vitamin B12 deficiency: Start on IM cyanocobalamin repletion. Medication changes and chronic medication discussed in detail with patient's sister at bedside. All the questions were answered. Continue chronic antiepileptics. DNR/DNI Regular diet Lovenox for DVT prophylaxis Plan for the day:. Continue with current treatment. Patient has been declined by SNF. Patient working well with physical therapy. Discussed in detail with sister at bedside. Plan will be to go and discharge home with home health and physical therapy as an outpatient. Sister requesting for 24 more hours to make further arrangements at home for patient safekeeping as patient lives by himself. Attestations 2 Medical Necessity Statement*: Requires further hospitalization while safe discharge planning is sought in a patient who is post-ORIF with baseline dementia Coding Level of Care Code 25762 Straight Forward/Low MDM includes number and complexity of problems actively addressed during encounter, amount and/or complexity of data reviewed/ordered [ previous or external records, resulted lab(s)/test(s), ordered lab(s)/test(s), independent historian, independent test interpretation and other healthcare professional discussion] and described risk of complication, morbidity or mortality of management as documented Diagnoses Fracture of hip S72.001A Encounter type: initial encounter Fracture type: closed Laterality: right
[2023-04-08] MEDS: phenytoin ER 100 mg Capsule PO ×2 (15:12→15:34)
[2023-04-08] MEDS: donepezil 5 MG Tablet 10 MG PO (20:38)
[2023-04-09] VITALS (10 sets, daily range): BP systolic 105–129; BP diastolic 61–74; PULSE 74–99; RESP 16–18; TEMP 36.5–36.8; O2SAT 96–97; BMI 25.0
[2023-04-09 04:40] LABS: Basophils # 0.1 10^3/uL (0.0-0.1); Eosinophils # 0.3 10^3/uL (0.0-0.8); Eosinophils % 4.4 %; Hematocrit 32.7 % (37-53); Lymphocytes % 14.9 %; Monocytes # 0.9 10^3/uL (0.2-0.9); Monocytes % 12.4 %; Neutrophils # 4.58 10^3/uL (1.8-7.7); Nucleated Red Blood Cells % 0 %; Platelet Count 203 10^3/cmm (157-399); Red Blood Count 3.27 10^6/uL (3.85-5.65); Red Cell Distribution Width 13.4 % (12.1-15.1); White Blood Count 6.84 10^3/uL (3.29-11.43)
[2023-04-09] MEDS: enoxaparin 30 mg/0.3 mL Syringe SUBCUT (05:43)
--- NOTE | 2023-04-09 06:41 | XR_ITS ---
WS: [id number] Exam: XR hip BI 2V wo/w pel [id number] Date/Time of Exam: 04/09/2023 7:20 AM Reason For Exam: FAll Comparison 04/03/2023. RIGHT total hip replacement remains in satisfactory position without complication. Lateral surgical s kin clips noted. The visualized pelvis is intact. IMPRESSION: 1. Total RIGHT hip replacement remaining in satisfactory position without change or complication.
--- NOTE | 2023-04-09 07:07 | PC.NURSE ---
This nurse was standing in hallway and heard a loud sound and patient yelled help this nurse went into room and patient was laying on the floor next to his bed on his left side. He states he did not hit his head and does not have any new pain. Patient has pulses and sensastion in both feet and can wiggle toes, no signs of injury. This nurse called Dr. Aldana and he ordered a bilateral hip xray. This nurse also called Dr. Arguello and updated him.
--- NOTE | 2023-04-09 07:13 | PC.NURSE ---
This nurse attempted to director call to notify, daughter (Lluvia Armas) it says this number is not in service.
[2023-04-09] MEDS: carBAMazepine XR (12 HR) 100 mg Tablet PO (08:21)
[2023-04-09] MEDS: carBAMazepine XR (12 HR) 200 mg Tablet 400 MG PO (08:21)
[2023-04-09] MEDS: PARoxetine 20 mg Tablet 10 MG PO (08:21)
[2023-04-09] MEDS: polyethylene glycol 3350 Pkt 17 gm PO (08:21)
[2023-04-09] MEDS: sennosides-docusate Tablet 1 TAB PO (08:22)
[2023-04-09] MEDS: iron polysaccharide complex 150 mg Capsule PO (08:22)
[2023-04-09] MEDS: calcium carb-vit d 600mg/400unit 1 Tablet 1 EACH PO (08:22)
[2023-04-09] MEDS: cyanocobalamin 1,000 mcg/mL SDV 1000 MCG IM (08:22)
[2023-04-09] MEDS: chlorhexidine gluconate 0.12% Btl 473 mL 30 ML MUCOUS MEM ×2 (08:22→12:44)
[2023-04-09] MEDS: lidocaine 5% Patch 1 PATCH TOPICAL (08:40)
[2023-04-09] MEDS: ciprofloxacin 200 MG/100 ML PREMIX 100 MG IV (10:01)
--- NOTE | 2023-04-09 12:17 | PM.DCS ---
Discharge Providers Date of Admission: 04/03/23 02:19 Date of Discharge: April 09, 2023 Attending Provider at Admission: Grupo Aldana MD Attending Provider at Discharge: Delroy Ballesteros MD Consults: Ortho: Dr. Arguello Diagnoses at Discharge Discharge Diagnosis (1) Fracture of hip: Status: Acute Qualifiers: Encounter type: initial encounter Fracture type: closed Laterality: right Qualified Code(s): S72.001A - Fracture of unspecified part of neck of right femur, initial encounter for closed fracture Reason for Visit Reason for Visit: hip pain, fall Brief History: History as per HPI: Ankush Clay is a 67 year old male with history of seizures, on 2 antiepileptics, dementia, DNR/DNI, presented to the hospital after sustaining a fall. Daughter is at the bedside stating that her dad has been falling lately at home,he grabs onto the furniture, 2 days fall was not witnessed, she went to bed early because she has to wake up at 2:30 AM to work, she takes sleeping aid, she checked on her father between 9 and 11 PM when he was found on the floor, patient is denying any seizure related activity, he is attributing his fall to losing balance, he was trying to get out of his bedroom to grab something from the kitchen. Hospital Course Hospital Course Patient was admitted to the hospital for evaluation and management of hip fracture. Orthopedics was consulted and he underwent ORIF on 04/03. Postoperative stay was unremarkable. Hospital stay was prolonged because of requirement for placement as per family's request for further rehabitation. Multiple nursing were attempted but patient was declined as he was working well with physical therapy though patient remains at a high risk for fall because of baseline diagnosis of dementia. Patient did have 1 episode of fall during hospitalization which was not present to orthostatic hypotension of pain medications and was mechanical while he was trying to get out of bed. X-rays were done which ruled out acute dislocation, hardware dislocation. Patient did not have a head injury during the fall. Hospitalization was otherwise unremarkable and patient was eventually discharged to home with home health and physical therapy. Physical Exam Narrative: Accompanied by his sister. Const: COMMON NORMALS: patient oriented x3 and alert GENERAL APPEARANCE: cooperative ORIENTATION/CONSCIOUSNESS: Yes awake HENMT: COMMON NORMALS: oropharynx normal Neck/C-Spine: COMMON NORMALS: no JVD Resp: COMMON NORMALS: normal respiratory effort and clear to auscultation bilaterally AUSCULTATION: clear to auscultation bilaterally Cardio: COMMON NORMALS: no JVD, regular rhythm, S1 normal heart sound present, S2 normal heart sound present and No murmurs present (Cardio) RHYTHM: regular rhythm HEART SOUNDS: S1 normal heart sound present and S2 normal heart sound present GI: COMMON NORMALS: Normal to inspection, nondistended, normoactive bowel sounds present, Soft to palpation and non-tender PALPATION: Yes Soft to palpation Extremity: COMMON NORMALS: no joint enlargement and no pedal edema OTHER: LE warm, perfused. No edema. Neuro: COMMON NORMALS: patient oriented x3 and moves all extremities SENSORIUM/ORIENTATION: Yes alert Skin: COMMON NORMALS: no rashes or lesions noted GENERAL SKIN EXAM: no rashes or lesions noted Urinary Catheter Management: Villanueva: Cath Placed During This Visit: yes, but has since been removed by the nurse Reason for Continuing Indwelling Catheter: Decision to DC Catheter Urinary Catheter Date of Insertion: 04/03/23 Urinary Catheter Time of Insertion: 04:38 Date Urinary Catheter Removed: 04/04/23 Time Urinary Catheter Discontinued: 06:14 Discharge Data Studies Completed and Pending Completed Studies During Hospitalization Category Date Time Status XR chest 1V portable [id number] Stat Exams 04/03/23 02:07 Completed XR femur RT min 2V* [id number] Routine Exams 04/03/23 13:47 Completed XR hip BI 2V wo/w pel [id number] Stat Exams 04/09/23 06:41 Completed XR hip RT 2-3V wo/w pel* [id number] Routine Exams 04/03/23 18:24 Completed XR hip RT 2-3V wo/w pel* [id number] Stat Exams 04/03/23 00:37 Completed Pending at discharge Category Date Time Status Type and Screen Routine Lab 04/03/23 16:11 Uncollected Radiology Impressions Chest X-Ray 04/03/23 02:07 IMPRESSION: No acute fracture identified. Small opacity projecting over the left lateral hemithorax, indeterminate, could be within bone or overlying soft tissues versus within the lung. Laboratory Results WBC 6.84 10^3/uL (3.29-11.43) 04/09/23 04:12 RBC 3.27 10^6/uL (3.85-5.65) L 12/13/23 04:12 Hgb 10.80 g/dL (11.27-16.99) L 04/09/23 04:12 Hct 32.7 % (37-53) L 04/09/23 04:12 MCV 100.0 fl (82-101) 04/09/23 04:12 MCH 33.0 pg (27-33) 04/09/23 04:12 MCHC 33.0 g/dL (30-55) 04/09/23 04:12 RDW 13.4 % (12.1-15.1) 04/09/23 04:12 Plt Count 203 10^3/cmm (157-399) 04/09/23 04:12 MPV 10.0 fL (7.4-10.4) 04/09/23 04:12 Neut % (Auto) 67.0 % 04/09/23 04:12 Lymph % (Auto) 14.9 % 04/09/23 04:12 [place] % (Auto) 12.4 % 04/09/23 04:12 Eos % (Auto) 4.4 % 04/09/23 04:12 Baso % (Auto) 1.0 % 04/09/23 04:12 Neut # (Auto) 4.58 10^3/uL (1.8-7.7) 04/09/23 04:12 Lymph # (Auto) 1.0 10^3/uL (0.8-4.8) 04/09/23 04:12 [place] # (Auto) 0.9 10^3/uL (0.2-0.9) 04/09/23 04:12 Eos # (Auto) 0.3 10^3/uL (0.0-0.8) 04/09/23 04:12 Baso # (Auto) 0.1 10^3/uL (0.0-0.1) 04/09/23 04:12 Nucleated RBC % (auto) 0 % 04/09/23 04:12 Nucleated RBCs # 0.0 /100WBC 04/09/23 04:12 PT 14.70 SECONDS (12.1-14.9) 04/03/23 02:54 INR 1.11 (0.8-1.2) 04/03/23 02:54 D-Dimer 9.53 ug/mLFEU (0-0.59) H 04/03/23 02:54 Sodium 136 mmol/L (136-145) 04/08/23 04:51 Potassium 4.3 mmol/L (3.5-5.1) 04/08/23 04:51 Chloride 99 mmol/L (98-107) 04/08/23 04:51 Carbon Dioxide 26 mmol/L (22-29) 04/08/23 04:51 Anion Gap 15.3 (5-19) 04/08/23 04:51 BUN 12 mg/dL (8-23) 04/08/23 04:51 Creatinine 0.8 mg/dL (0.7-1.2) 04/08/23 04:51 GFR Calculation 96.1 mL/min (90-130) 04/08/23 04:51 Glucose 111 mg/dL (65-115) 04/08/23 04:51 Estimat Average Glucose 97 04/03/23 02:20 Hemoglobin A1c 5.0 % (4.0-6.0) 04/03/23 02:20 Calculated Osmolality 282 mOsm/kg (285-295) L 04/08/23 04:51 Calcium 8.8 mg/dL (8.5-10.5) 04/08/23 04:51 Magnesium 1.9 mg/dL (1.7-2.3) 04/04/23 13:23 Total Bilirubin 0.3 mg/dL (0.15-1.2) 04/08/23 04:51 AST 20 U/L (0-40) 04/08/23 04:51 ALT 16 U/L (0-41) 04/08/23 04:51 Alkaline Phosphatase 72 U/L (40-130) 04/08/23 04:51 C-Reactive Protein 195.3 mg/L (0.0-4.9) H 04/04/23 13:23 Total Protein 6.0 g/dL (6.6-8.7) L 04/08/23 04:51 Albumin 3.2 g/dL (3.5-5.2) L 04/08/23 04:51 Globulin 2.8 g/dL (1.3-4.6) 04/08/23 04:51 Triglycerides 61 mg/dL (0-150) 04/08/23 04:51 Cholesterol 148 mg/dL (0-200) 04/08/23 04:51 LDL Cholesterol, Calc 88 mg/dL (50-129) 04/08/23 04:51 Total VLDL Cholesterol 12 mg/dL (0-30) 04/08/23 04:51 HDL Cholesterol 48 mg/dL (60-100) L 04/08/23 04:51 Cholesterol/HDL Ratio 3.08 mg/dL (1.0-5.00) 04/08/23 04:51 Vitamin B12 186 pg/mL (232-1245) L 04/03/23 02:54 Folate 3.4 ng/mL (4.5-32.2) L 04/08/23 04:51 Procalcitonin 0.03 ng/mL (0-0.5) 04/03/23 02:54 TSH 4.05 uIU/mL (0.27-4.20) 04/03/23 02:54 Prolactin 18.52 ng/mL (4.0-15.2) H 04/03/23 02:54 Urine Color Yellow (Yellow) 04/03/23 10:30 Urine Appearance Clear (CLEAR) 04/03/23 10:30 Urine pH 6 (5-7) 04/03/23 10:30 Ur Specific Gallant 1.010 (1.005-1.030) 04/03/23 10:30 Urine Protein Neg (Negative) 04/03/23 10:30 Urine Glucose (UA) Norm (Normal) 04/03/23 10:30 Urine Ketones Negative (Negative) 04/03/23 10:30 Urine Blood 2+ (Negative) H 04/03/23 10:30 Urine Nitrate Negative (Negative) 04/03/23 10:30 Urine Bilirubin Neg (Negative) 04/03/23 10:30 Urine Urobilinogen Norm mg/dL (Negative) 04/03/23 10:30 Ur Leukocyte Esterase 1+ (Negative) H 04/03/23 10:30 Urine RBC 0-4 /hpf (0-2) H 04/03/23 10:30 Urine WBC 15-25 /hpf (0-5) H 04/03/23 10:30 Ur Squamous Epith Cells 0-4 /hpf (0-5) H 04/03/23 10:30 Ur Transition Epith Cell 0-4 /hpf 04/03/23 10:30 Amorphous Sediment Not Reportable 04/03/23 10:30 Urine Bacteria Trace /hpf (NONE) 04/03/23 10:30 Urine Mucus Trace /hpf 04/03/23 10:30 Phenytoin 6.1 ug/mL (10-20) L 04/03/23 02:54 Carbamazepine 10.9 ug/mL (4.0-12.0) 04/03/23 02:54 Blood Type AB Positive 04/03/23 02:54 Rho(D) Type Rh positive 04/03/23 02:54 Antibody Screen Negative 04/03/23 02:54 Vitals Last Vital Signs Temp 98.1 F 04/09/23 11:28 Pulse 76 04/09/23 11:28 Resp 17 04/09/23 11:28 BP 122/73 04/09/23 11:28 Pulse Ox 96 04/09/23 11:28 O2 Del Method Room Air 04/09/23 11:28 O2 Flow Rate 6 04/03/23 18:48 Discharge Plan Discharge Patient Disposition: Home Condition: Stable Prescriptions: New Lovenox 30 mg/0.3 mL syringe 30 mg SUBCUT DAILY 35 Days Qty: 10.5 0RF Calcium 600 + D(3) 600 mg-10 mcg (400 unit) tablet 1 tab PO DAILY 30 Days Qty: 30 0RF ondansetron 4 mg tablet,disintegrating 4 mg PO Q8H 3 Days Qty: 9 0RF oxycodone 5 mg tablet 5 mg PO Q6H PRN (Reason: pain postop) 7 Days Qty: 28 0RF calcium carbonate-vitamin D3 600 mg-10 mcg (400 unit) Tablet 1 tab PO BID Qty: 30 0RF Ferrex 150 150 mg iron Capsule 150 mg PO BIDWM Qty: 60 0RF cyanocobalamin (vitamin B-12) 1,000 mcg capsule 1,000 mcg PO DAILY Qty: 30 0RF Continued carbamazepine 200 mg capsule, ER multiphase 12 hr 200 mg PO BID carbamazepine 300 mg capsule, ER multiphase 12 hr 300 mg PO BID paroxetine HCl 10 mg tablet 10 mg PO DAILY primidone 250 mg tablet 250 mg PO BID Dilantin Extended 100 mg capsule 100 mg PO DAILY donepezil 10 mg tablet 10 mg PO BEDTIME Discharge Orders: Discharge Order (Routine); Ordered 04/09/23 Ordered By: Delroy Ballesteros Referrals: Vinicio Arguello, [Physician] - 2 weeks (We have notified your physician's clinic of the need for a follow-up appointment to be scheduled. If you have not heard from them within the next 2 business days, please call them directly.PLEASE CALL PATIENT WITH APPOINTMENT) Discharge Diet: Advance as tolerated Discharge Activity: Limit activity as instructed, Use walker/crutches as instructed and As per PT/OT instructions Patient Instructions: Iron Supplements (By mouth), Oxycodone/Acetaminophen (By mouth) (Percocet, Roxicet), Cyanocobalamin (By injection) (B-12 Compliance Injection Kit, B-12..., Ondansetron (By mouth), Enoxaparin (By injection) (Lovenox), Joint Replacement Surgery (DC), Opioid Safety Activity Restrictions/Additional Instructions: Orthopedic discharge instructions: Patient should leave dressing on in place for 7 days after that may remove bandage dressing and clean incision with warm soapy water, pat dry and redressed with a dry dressing Keep incision clean dry and intact If dressing does become saturated please remove dressing and reapply a new bandage No baths or soaks Take pain medication as prescribed Take antinausea medication as needed Supplement with Citracal/vitamin D for bone health and healing Posterior hip precautions (avoid hip flexion and internal rotation and do not cross legs) Take blood thinner (DVT prophylaxis) as prescribed for blood clot prevention Follow-up with Dr. Arguello in the office in 2 weeks Contact the office for any questions or concerns Discharge Attestations Time Spent in Discharge Care*: greater than 30 min Specific Discharge Activities: educating patient, educating and/or supporting family/caregiver, discussing with pcp/other providers, discussing with patient case manager/social workers/dc planners, documenting/other paperwork and evaluating patient/reviewing data Status at Discharge: Cognitive status at discharge: cognitively intact, Behavioral status at discharge: cooperative, Functional status at discharge: uses cane/walker, Overall status at discharge: patient is back to baseline Quality Metrics Clinical Quality Measures [ No reported AMI, CVA or VTE this stay] Coding Level of Care Code 43774 Total time (in minutes) for Discharge: 60 Diagnoses Fracture of hip S72.001A Encounter type: initial encounter Fracture type: closed Laterality: right
--- NOTE | 2023-04-09 16:02 | P.MISC_ITS ---
Miscellaneous Note Purpose of Documentation: Was contacted by nurse overnight the patient did sustain a fall x-rays for the bilateral hips ordered by primary team waited for review of these x-rays x-rays came back as negative I personally reviewed these myself and there is no evidence of periprosthetic fracture or dislocation on the operative right hip and the left hip there is no acute fracture or dislocation appreciated on x- rays. Patient will be discharging later today per nurse. Vinicio Arguello DO/ orthopedic surgery
== END 2023-04-09 15:27 | disposition home or self-care (01) | DRG 522 ==
LOC: ER 02:03 → MEDSURG 02:19
PROVIDERS: Internal Medicine; Student in an Organized Health Care Education/Training Program; Admitting Provider Internal Medicine; Emergency Provider Emergency Medicine; Visit Provider Student in an Organized Health Care Education/Training Program
PROC: 0SRR0J9 Replacement of Right Hip Joint, Femoral Surface with Synthetic Substitute, Cemented, Open Approach (ICD-10-PCS; CPT 27125; principal; 2023-04-03 16:25)
DX: S72.031A Displaced midcervical fracture of right femur, initial encounter for closed fracture (principal); F03.911 Unspecified dementia, unspecified severity, with agitation; N39.0 Urinary tract infection, site not specified; W01.0XXA Fall on same level from slipping, tripping and stumbling without subsequent striking against object, initial encounter; W06.XXXA Fall from bed, initial encounter; Y92.230 Patient room in hospital as the place of occurrence of the external cause; E53.8 Deficiency of other specified B group vitamins; Z66 Do not resuscitate; G40.909 Epilepsy, unspecified, not intractable, without status epilepticus; Z91.81 History of falling; I95.2 Hypotension due to drugs; T50.905A Adverse effect of unspecified drugs, medicaments and biological substances, initial encounter; Z88.0 Allergy status to penicillin; E87.6 Hypokalemia
CPT/HCPCS: 36415; 51702; 71045; 73502; 73521; 73552; 80048; 80053; 80061; 80156; 80185; 81001; 82607; 82746; 83036; 83735; 84145; 84146; 84443; 85025; 85378; 85610; 86140; 86850; 86900; 87086; 93005; 94762; 96372; 96374; 97110; 97116; 97161; 97165; 97530; 97535; 99285; C1776; J0131; J0744; J1630; J1650; J1885; J2371; J2704; J3010; J3370; J3420; J3490; J7030; J7050

== ENCOUNTER → 2023-05-01 10:40 | Outpatient (BNVA) | payer MEDICARE, MEDICAID, SELFPAY | PROVIDERS: PCP Family Medicine; Visit Provider Physician Assistant | DX: Z96.642 Presence of left artificial hip joint; S72.001D Fracture of unspecified part of neck of right femur, subsequent encounter for closed fracture with routine healing; X58.XXXD Exposure to other specified factors, subsequent encounter | CPT/HCPCS: 73502; 99024 ==

== ENCOUNTER → 2023-06-19 10:36 | Outpatient (BNVA) | payer MEDICARE, MEDICAID, SELFPAY | PROVIDERS: PCP Family Medicine; Visit Provider Student in an Organized Health Care Education/Training Program | DX: Z96.641 Presence of right artificial hip joint; S72.001D Fracture of unspecified part of neck of right femur, subsequent encounter for closed fracture with routine healing; W18.39XD Other fall on same level, subsequent encounter | CPT/HCPCS: 73522; 99213 ==

== ENCOUNTER → 2023-12-16 10:51 | Outpatient (BNVA) | payer MEDICARE, MEDICAID, SELFPAY | PROVIDERS: PCP Family Medicine; Visit Provider Student in an Organized Health Care Education/Training Program | DX: Z96.641 Presence of right artificial hip joint | CPT/HCPCS: 73502; 99213 ==

== ENCOUNTER → 2024-04-06 11:11 | Outpatient (BNVA) | payer MEDICARE, MEDICAID, SELFPAY | PROVIDERS: PCP Family Medicine; Visit Provider Physician Assistant | DX: Z96.641 Presence of right artificial hip joint | CPT/HCPCS: 73502 ==

== ENCOUNTER 2024-04-06 21:34 | Emergency (ER) | payer MEDICARE, MEDICAID, SELFPAY ==
[2024-04-06 21:35] VITALS: BP 122/51; PULSE 80; RESP 18; TEMP 36.5; O2SAT 96; BMI 26.2
--- NOTE | 2024-04-06 21:40 | ECG_ITS ---
[facility] Date: 2024-04-06 Pat Name: Ankush Clay Department: Room: Gender: Male Telecommunications Field Technician: : 1955 Requested By: Jessica Doherty Order Number: [id number] Angie MD: Deya Perez M.D. Measurements Intervals [place] Rate: 78 P: 51 FL: 160 QRS: 1 QRSD: 93 T: 44 QT: 331 QTc: 379 Interpretive Statements SINUS RHYTHM LOW QRS VOLTAGE IN PRECORDIAL LEADS [QRS DEFLECTION < 1.0 mV IN CHEST LEADS] Compared to ECG 04/03/2023 02:23:18 No significant changes Electronically Signed On 04-07-2024 00:57:59 CHART PICKER by Deya Perez M.D. [email or web address]
--- NOTE | 2024-04-06 21:40 | XRR_ITS ---
PROCEDURE INFORMATION: Exam: XR Chest Exam date and time: 04/06/2024 9:42 PM Age: 68 years old Clinical indication: Other: Weakness TECHNIQUE: Imaging protocol: Radiologic exam of the chest. Views: 1 view. COMPARISON: CR XR chest 1V portable [id number] 04/03/2023 2:12 AM FINDINGS: Lungs: Reticular opacities in the right lower lung zone, likely representing atelectasis. No consolidation. Pleural spaces: Unremarkable. No pleural effusion. No pneumothorax. Heart/Mediastinum: Unremarkable. No cardiomegaly. Bones/joints: Unremarkable. XR/XR chest 1V portable [id number] IMPRESSION: No acute cardiopulmonary process.
--- NOTE | 2024-04-06 21:40 | CTR_ITS ---
PROCEDURE INFORMATION: Exam: CT Head Without Contrast Exam date and time: 04/06/2024 10:08 PM Age: 68 years old Clinical indication: Injury or trauma; Fall; Blunt trauma (contusions or hematomas); Additional info: Weakness TECHNIQUE: Imaging protocol: Computed tomography of the head without contrast. Radiation optimization: All CT scans at this facility use at least one of these dose optimization techniques: automated exposure control; mA and/or kV adjustment per patient size (includes targeted exams where dose is matched to clinical indication); or iterative reconstruction. COMPARISON: CT head wo/w con [id number] 06/26/2020 2:09 PM RADIATION DOSE METRICS: Total DLP (mGy-cm): 988.15 FINDINGS: Brain: Moderate diffuse parenchymal volume loss. 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 No recent infarct, intracranial bleed or mass effect. There are bilateral periventricular white matter and centrum semiovale hypodensities, consistent with chronic ischemic small vessel disease. Cerebral ventricles: Ex vacuo dilatation of the ventricles. Paranasal sinuses: Visualized sinuses are unremarkable. No fluid levels. Mastoid air cells: Visualized mastoid air cells are well aerated. Orbital cavities: Post bilateral cataract surgery. Bones: Unremarkable. No acute fracture. Soft tissues: Unremarkable. CT/CT head wo con* [id number] IMPRESSION: No acute intracranial posttraumatic changes.
--- NOTE | 2024-04-06 21:42 | ED_ITS ---
Documented by User: Jessica Doherty MD 04/06/24 22:08 HPI - Fall 2 General: Chief Complaint: Fall Stated Complaint: FALL Time Seen by Provider: 04/06/24 21:36 Source: patient and EMS Mode of arrival: EMS Limitations: no limitations History of Present Illness: 68-year-old male is here with EMS for ge neralized weakness per EMS patient's had 2 falls today he states that he has chronic weakness has had multiple falls for years. He states he uses a cane to walk around he has a walker but does not use it. He denies any pain currently fractured his hip a year ago with a fall. He denies any headache he does get frequent UTIs Associated symptoms-after fall: Denies abdominal pain, chest pain, headache(s) or neck pain Related Data Home Medications Medication Instructions Recorded Confirmed carbamazepine 200 mg 200 mg PO BID 04/03/23 04/06/24 capsule,extended release [id number] carbamazepine 300 mg 300 mg PO BID 04/03/23 04/06/24 capsule,extended release [id number] donepezil 10 mg tablet 10 mg PO BEDTIME 04/03/23 04/06/24 paroxetine HCl 10 mg tablet 10 mg PO DAILY 04/03/23 04/06/24 phenytoin sodium extended 100 mg 100 mg PO DAILY 04/03/23 04/06/24 capsule (Dilantin Extended) primidone 250 mg tablet 250 mg PO BID 04/03/23 04/06/24 Previous Rx's Medication Instructions Recorded calcium 600 mg (as 1 tab PO BID #30 tabs 04/09/23 carbonate)-vitamin D3 10 mcg (400 unit) tablet cyanocobalamin (vitamin B-12) 1,000 mcg PO DAILY #30 caps 04/09/23 1,000 mcg capsule polysaccharide iron complex 150 mg 150 mg PO BIDWM #60 caps 04/09/23 iron capsule (Ferrex) oxycodone 5 mg tablet 5 mg PO Q4H PRN pain 7 days #40 04/17/23 tabs oxycodone-acetaminophen 10 mg-325 1 tab PO Q4H PRN pain 7 days #42 04/17/23 mg tablet tabs prednisone 20 mg tablet 20 mg PO DAILY #15 tabs 06/19/23 Allergies Allergy/AdvReac Type Severity Reaction Status Date / Time Penicillins Allergy Unknown Verified 04/06/24 21:41 Review of Systems 2 Const: Reports: fatigue; Denies: fever(s), chills, body aches or change in appetite ENMT: Denies: throat pain or dental pain Card: Denies: chest pain Resp: Denies: dyspnea GI: Denies: abdominal pain, nausea, vomiting or diarrhea Musc: Denies: neck pain or back pain Skin/Breast: Denies: rash Neuro: Denies: headache(s) PFSH ED 2 PFSH: Medical History Seizure Surgical History No pertinent past surgical history Social History Smoking and tobacco/nicotine status: never used tobacco/nicotine Alcohol intake: never Physical Exam 2 Const: COMMON NORMALS: no acute distress, patient oriented x3 and healthy appearing HENMT: COMMON NORMALS: normocephalic and atraumatic HEAD & SCALP: n ormocephalic and atraumatic Eye: COMMON NORMALS: Equal, round and reactive pupils present and EOMs intact bilaterally PUPIL: Yes Equal, round and reactive pupils present Neck/C-Spine: COMMON NORMALS: full ROM and supple Chest: COMMONS NORMALS: normal inspection of the chest and normal palpation of entire chest wall Resp: COMMON NORMALS: normal respiratory effort, No retractions, No use of accessory muscles and clear to auscultation bilaterally AUSCULTATION: clear to auscultation bilaterally Cardio: COMMON NORMALS: regular rate, regular rhythm and No murmurs present (Cardio) RATE: regular rate RHYTHM: regular rhythm GI: COMMON NORMALS: Normal to inspection, nondistended, normoactive bowel sounds present, Soft to palpation, non-tender and no masses PALPATION: Yes Soft to palpation Extremity: COMMON NORMALS: normal to inspection and full ROM Neuro: COMMON NORMALS: patient oriented x3, moves all extremities and no focal motor deficits Psych: COMMON NORMALS: mental status grossly normal, Normal thought process present and cooperative THOUGHT PROCESS: Normal thought process present Skin: COMMON NORMALS: no rashes or lesions noted and no wounds GENERAL SKIN EXAM: no rashes or lesions noted Course 2 Vital Signs: Vital signs: Vital Signs Temperature 97.7 F 04/06/24 21:35 Pulse Rate 73 04/06/24 23:00 Respiratory Rate 16 04/06/24 23:00 Blood Pressure 131/71 04/06/24 23:00 Pulse Oximetry 99 04/06/24 23:00 Oxygen Delivery Me thod Room Air 04/06/24 23:00 MDM - Fall Medical Records I reviewed the patient's medical records. Lab Data I reviewed the patient's lab results. 04/06/24 21:55 04/06/24 21:55 Radiology Impressions Chest X-Ray 04/06/24 21:40 IMPRESSION: No acute cardiopulmonary process. Head CT 04/06/24 21:40 IMPRESSION: No acute intracranial posttraumatic changes. Laboratory Results WBC 6.37 10^3/uL (3.29-11.43) 04/06/24 21:55 RBC 3.60 10^6/uL (3.85-5.65) L 04/06/24 21:55 Hgb 11.90 g/dL (11.27-16.99) 04/06/24 21:55 Hct 36.3 % (37-53) L 04/06/24 21:55 MCV 100.8 fl (82-101) 04/06/24 21:55 MCH 33.1 pg (27-33) H 04/06/24 21:55 MCHC 32.8 g/dL (30-55) 04/06/24 21:55 RDW 13.2 % (12.1-15.1) 04/06/24 21:55 Plt Count 176 10^3/cmm (157-399) 04/06/24 21:55 MPV 9.4 fL (7.4-10.4) 04/06/24 21:55 Neut % (Auto) 78.6 % 04/06/24 21:55 Lymph % (Auto) 13.7 % 04/06/24 21:55 [place] % (Auto) 6.6 % 04/06/24 21:55 Eos % (Auto) 0.5 % 04/06/24 21:55 Baso % (Auto) 0.3 % 04/06/24 21:55 Neut # (Auto) 5.01 10^3/uL (1.8-7.7) 04/06/24 21:55 Lymph # (Auto) 0.9 10^3/uL (0.8-4.8) 04/06/24 21:55 [place] # (Auto) 0.4 10^3/uL (0.2-0.9) 04/06/24 21:55 Eos # (Auto) 0.0 10^3/uL (0.0-0.8) 04/06/24 21:55 Baso # (Auto) 0.0 10^3/uL (0.0-0.1) 04/06/24 21:55 Nucleated RBC % (auto) 0 % 04/06/24 21:55 Nucleated RBCs # 0.0 /100WBC 04/06/24 21:55 Sodium 140 mmol/L (136-145) 04/06/24 21:55 Potassium 4.5 mmol/L (3.5-5.1) 04/06/24 21:55 Chloride 105 mmol/L (98-107) 04/06/24 21:55 Carbon Dioxide 27 mmol/L (22-29) 04/06/24 21:55 Anion Gap 12.5 (5-19) 04/06/24 21:55 BUN 21 mg/dL (8-23) 04/06/24 21:55 Creatinine 0.9 mg/dL (0.7-1.2) 04/06/24 21:55 GFR Calculation 83.7 mL/min (90-130) L 04/06/24 21:55 Glucose 151 mg/dL (65-115) H 04/06/24 21:55 POC Glucose 126 mg/dL (70-110) H 04/06/24 22:34 Calculated Osmolality 296 mOsm/kg (285-295) H 04/06/24 21:55 Calcium 8.3 mg/dL (8.5-10.5) L 04/06/24 21:55 Total Bilirubin 0.2 mg/dL (0.15-1.2) 04/06/24 21:55 AST 18 U/L (0-40) 04/06/24 21:55 ALT 16 U/L (0-41) 04/06/24 21:55 Alkaline Phosphatase 69 U/L (40-130) 04/06/24 21:55 Total Protein 5.7 g/dL (6.6-8.7) L 04/06/24 21:55 Albumin 3.6 g/dL (3.5-5.2) 04/06/24 21:55 Globulin 2.1 g/dL (1.3-4.6) 04/06/24 21:55 TSH 3.30 uIU/mL (0.27-4.20) 04/06/24 21:55 All radiology interpretation(s) finalized by discharge EKG Data EKG 1: I personally reviewed and interpreted this EKG as follows: EKG interpretation date: 04/06/24 EKG interpretation time: 21:53 Interpretation: nsr hr [address] elevation qrs 93 qtc 365 Discharge Plan Discharge Patient Disposition: Home Clinical Impression: Fall, Generalized weakness Condition: Stable Prescriptions: No Action prednisone 20 mg tablet 20 mg PO DAILY Qty: 15 0RF Rx Instructions: 60 mg X 3 days 40 mg X 2 days 20 mg X 2 days oxycodone 5 mg tablet 5 mg PO Q4H PRN (Reason: pain) 7 Days Qty: 40 0RF oxycodone-acetaminophen 10-325 mg tablet 1 tab PO Q4H PRN (Reason: pain) 7 Days Qty: 42 0RF carbamazepine 200 mg capsule, ER multiphase 12 hr 200 mg PO BID carbamazepine 300 mg capsule, ER multiphase 12 hr 300 mg PO BID paroxetine HCl 10 mg tablet 10 mg PO DAILY primidone 250 mg tablet 250 mg PO BID Dilantin Extended 100 mg capsule 100 mg PO DAILY donepezil 10 mg tablet 10 mg PO BEDTIME calcium carbonate-vitamin D3 600 mg-10 mcg (400 unit) Tablet 1 tab PO BID Qty: 30 0RF Ferrex 150 150 mg iron Capsule 150 mg PO BIDWM Qty: 60 0RF cyanocobalamin (vitamin B-12) 1,000 mcg capsule 1,000 mcg PO DAILY Qty: 30 0RF Discharge Orders: Discharge ED (Routine); Ordered 04/06/24 Ordered By: Landon Aguilera Referrals: Nkechi Peraza DO [Primary Care Provider] - 1 week Patient Instructions: Weakness (Generalized), Fall Prevention (ED) Activity Restrictions/Additional Instructions: Evaluation ER included physical exam as well as lab work and imaging all of which was essentially unremarkable. Please continue to use your cane with any ambulation. Please follow-up with your family practice physician for further evaluation and treatment. Thank you for choosing [facility] for your healthcare needs today. Please realize that you were seen in the emergency department and that we are providing you with an emergency medical screening exam and this may not be a complete and all exclusive of all testing and/or medical workup we may need to determine your element or severity of your illness. It is very important that you follow-up as instructed with your primary care provider or specialist for the additional evaluation and to discuss your medical treatment plan. You may return to the emergency department should you have concerns or if your condition changes or worsens in any way. Coding Level of Care Code ED Manager Brand for Chg Fwd Documented by User: Landon Aguilera, 04/06/24 23:34 HPI - Fall 2 General: Chief Complaint: Fall Stated Complaint: FALL Time Seen by Provider: 04/06/24 21:36 Related Data Home Medications Medication Instructions Recorded Confirmed carbamazepine 200 mg 200 mg PO BID 04/03/23 04/06/24 capsule,extended release [id number] carbamazepine 300 mg 300 mg PO BID 04/03/23 04/06/24 capsule,extended release [id number] donepezil 10 mg tablet 10 mg PO BEDTIME 04/03/23 04/06/24 paroxetine HCl 10 mg tablet 10 mg PO DAILY 04/03/23 04/06/24 phenytoin sodium extended 100 mg 100 mg PO DAILY 04/03/23 04/06/24 capsule (Dilantin Extended) primidone 250 mg tablet 250 mg PO BID 04/03/23 04/06/24 Previous Rx's Medication Instructions Recorded calcium 600 mg (as 1 tab PO BID #30 tabs 04/09/23 carbonate)-vitamin D3 10 mcg (400 unit) tablet cyanocobalamin (vitamin B-12) 1,000 mcg PO DAILY #30 caps 04/09/23 1,000 mcg capsule polysaccharide iron complex 150 mg 150 mg PO BIDWM #60 caps 04/09/23 iron capsule (Ferrex) oxycodone 5 mg tablet 5 mg PO Q4H PRN pain 7 days #40 04/17/23 tabs oxycodone-acetaminophen 10 mg-325 1 tab PO Q4H PRN pain 7 days #42 04/17/23 mg tablet tabs prednisone 20 mg tablet 20 mg PO DAILY #15 tabs 06/19/23 Allergies Allergy/AdvReac Type Severity Reaction Status Date / Time Penicillins Allergy Unknown Verified 04/06/24 21:41 PFSH ED 2 PFSH: Medical History Seizure Surgical History No pertinent past surgical history Social History Smoking and tobacco/nicotine status: never used tobacco/nicotine Alcohol intake: never Course 2 Vital Signs: Vital signs: Vital Signs Temperature 97.7 F 04/06/24 21:35 Pulse Rate 73 04/06/24 23:00 Respiratory Rate 16 04/06/24 23:00 Blood Pressure 131/71 04/06/24 23:00 Pulse Oximetry 99 04/06/24 23:00 Oxygen Delivery Me thod Room Air 04/06/24 23:00 MDM - Fall Medical Decision Making Patient care turned over to myself at shift change, lab work was reviewed as well as chest x-ray and head CT, patient be discharged home. Lab Data 04/06/24 21:55 04/06/24 21:55 Radiology Impressions Chest X-Ray 04/06/24 21:40 IMPRESSION: No acute cardiopulmonary process. Head CT 04/06/24 21:40 IMPRESSION: No acute intracranial posttraumatic changes. Laboratory Results WBC 6.37 10^3/uL (3.29-11.43) 04/06/24 21:55 RBC 3.60 10^6/uL (3.85-5.65) L 04/06/24 21:55 Hgb 11.90 g/dL (11.27-16.99) 04/06/24 21:55 Hct 36.3 % (37-53) L 04/06/24 21:55 MCV 100.8 fl (82-101) 04/06/24 21:55 MCH 33.1 pg (27-33) H 04/06/24 21:55 MCHC 32.8 g/dL (30-55) 04/06/24 21:55 RDW 13.2 % (12.1-15.1) 04/06/24 21:55 Plt Count 176 10^3/cmm (157-399) 04/06/24 21:55 MPV 9.4 fL (7.4-10.4) 04/06/24 21:55 Neut % (Auto) 78.6 % 04/06/24 21:55 Lymph % (Auto) 13.7 % 04/06/24 21:55 [place] % (Auto) 6.6 % 04/06/24 21:55 Eos % (Auto) 0.5 % 04/06/24 21:55 Baso % (Auto) 0.3 % 04/06/24 21:55 Neut # (Auto) 5.01 10^3/uL (1.8-7.7) 04/06/24 21:55 Lymph # (Auto) 0.9 10^3/uL (0.8-4.8) 04/06/24 21:55 [place] # (Auto) 0.4 10^3/uL (0.2-0.9) 04/06/24 21:55 Eos # (Auto) 0.0 10^3/uL (0.0-0.8) 04/06/24 21:55 Baso # (Auto) 0.0 10^3/uL (0.0-0.1) 04/06/24 21:55 Nucleated RBC % (auto) 0 % 04/06/24 21:55 Nucleated RBCs # 0.0 /100WBC 04/06/24 21:55 Sodium 140 mmol/L (136-145) 04/06/24 21:55 Potassium 4.5 mmol/L (3.5-5.1) 04/06/24 21:55 Chloride 105 mmol/L (98-107) 04/06/24 21:55 Carbon Dioxide 27 mmol/L (22-29) 04/06/24 21:55 Anion Gap 12.5 (5-19) 04/06/24 21:55 BUN 21 mg/dL (8-23) 04/06/24 21:55 Creatinine 0.9 mg/dL (0.7-1.2) 04/06/24 21:55 GFR Calculation 83.7 mL/min (90-130) L 04/06/24 21:55 Glucose 151 mg/dL (65-115) H 04/06/24 21:55 POC Glucose 126 mg/dL (70-110) H 04/06/24 22:34 Calculated Osmolality 296 mOsm/kg (285-295) H 04/06/24 21:55 Calcium 8.3 mg/dL (8.5-10.5) L 04/06/24 21:55 Total Bilirubin 0.2 mg/dL (0.15-1.2) 04/06/24 21:55 AST 18 U/L (0-40) 04/06/24 21:55 ALT 16 U/L (0-41) 04/06/24 21:55 Alkaline Phosphatase 69 U/L (40-130) 04/06/24 21:55 Total Protein 5.7 g/dL (6.6-8.7) L 04/06/24 21:55 Albumin 3.6 g/dL (3.5-5.2) 04/06/24 21:55 Globulin 2.1 g/dL (1.3-4.6) 04/06/24 21:55 TSH 3.30 uIU/mL (0.27-4.20) 04/06/24 21:55 Discharge Plan Discharge Patient Disposition: Home Clinical Impression: Fall, Generalized weakness Condition: Stable Prescriptions: No Action prednisone 20 mg tablet 20 mg PO DAILY Qty: 15 0RF Rx Instructions: 60 mg X 3 days 40 mg X 2 days 20 mg X 2 days oxycodone 5 mg tablet 5 mg PO Q4H PRN (Reason: pain) 7 Days Qty: 40 0RF oxycodone-acetaminophen 10-325 mg tablet 1 tab PO Q4H PRN (Reason: pain) 7 Days Qty: 42 0RF carbamazepine 200 mg capsule, ER multiphase 12 hr 200 mg PO BID carbamazepine 300 mg capsule, ER multiphase 12 hr 300 mg PO BID paroxetine HCl 10 mg tablet 10 mg PO DAILY primidone 250 mg tablet 250 mg PO BID Dilantin Extended 100 mg capsule 100 mg PO DAILY donepezil 10 mg tablet 10 mg PO BEDTIME calcium carbonate-vitamin D3 600 mg-10 mcg (400 unit) Tablet 1 tab PO BID Qty: 30 0RF Ferrex 150 150 mg iron Capsule 150 mg PO BIDWM Qty: 60 0RF cyanocobalamin (vitamin B-12) 1,000 mcg capsule 1,000 mcg PO DAILY Qty: 30 0RF Discharge Orders: Discharge ED (Routine); Ordered 04/06/24 Ordered By: Landon Aguilera Referrals: Nkechi Peraza DO [Primary Care Provider] - 1 week Patient Instructions: Weakness (Generalized), Fall Prevention (ED) Activity Restrictions/Additional Instructions: Evaluation ER included physical exam as well as lab work and imaging all of which was essentially unremarkable. Please continue to use your cane with any ambulation. Please follow-up with your family practice physician for further evaluation and treatment. Thank you for choosing [facility] for your healthcare needs today. Please realize that you were seen in the emergency department and that we are providing you with an emergency medical screening exam and this may not be a complete and all exclusive of all testing and/or medical workup we may need to determine your element or severity of your illness. It is very important that you follow-up as instructed with your primary care provider or specialist for the additional evaluation and to discuss your medical treatment plan. You may return to the emergency department should you have concerns or if your condition changes or worsens in any way. Coding Level of Care Code ED Manager Brand for Shaniqua Belcher
[2024-04-06 22:01] VITALS: BP 114/58; PULSE 77; RESP 16; O2SAT 98
[2024-04-06 22:02] LABS: Basophils % 0.3 %; Eosinophils % 0.5 %; Hematocrit 36.3 % (37-53); Lymphocytes # 0.9 10^3/uL (0.8-4.8); Lymphocytes % 13.7 %; Mean Corpuscular HGB Conc 32.8 g/dL (30-55); Mean Corpuscular Hemoglobin 33.1 pg (27-33); Mean Corpuscular Volume 100.8 fl (82-101); Mean Platelet Volume 9.4 fL (7.4-10.4); Monocytes # 0.4 10^3/uL (0.2-0.9); Monocytes % 6.6 %; Neutrophils # 5.01 10^3/uL (1.8-7.7); Neutrophils % 78.6 %; Nucleated Red Blood Cells % 0 %; Platelet Count 176 10^3/cmm (157-399); Red Cell Distribution Width 13.2 % (12.1-15.1); White Blood Count 6.37 10^3/uL (3.29-11.43)
[2024-04-06 22:30] VITALS: BP 119/64; PULSE 75; RESP 16; O2SAT 99
[2024-04-06 22:30] LABS: Alanine Aminotransferase 16 U/L (0-41); Albumin Level 3.6 g/dL (3.5-5.2); Alkaline Phosphatase 69 U/L (40-130); Anion Gap 12.5 (5-19); Aspartate Amino Transferase 18 U/L (0-40); Blood Urea Nitrogen 21 mg/dL (8-23); Calcium 8.3 mg/dL (8.5-10.5); Carbon Dioxide 27 mmol/L (22-29); Chloride 105 mmol/L (98-107); Creatinine Clr Calc Pharmacy 81.8643; Globulin 2.1 g/dL (1.3-4.6); Glomerular Filtration Rate 83.7 mL/min (90-130); Glucose 151 mg/dL (65-115); Osmolality Calculated 296 mOsm/kg (285-295); Potassium 4.5 mmol/L (3.5-5.1); Sodium 140 mmol/L (136-145); Total Bilirubin 0.2 mg/dL (0.15-1.2); Total Protein 5.7 g/dL (6.6-8.7)
[2024-04-06 22:39] LABS: Glucose Point of Care 126 mg/dL (70-110)
[2024-04-06 23:00] VITALS: BP 131/71; PULSE 73; RESP 16; O2SAT 99
[2024-04-07] VITALS: BP 131/74; PULSE 67; O2SAT 100
== END 2024-04-07 00:03 | disposition home or self-care (01) ==
PROVIDERS: Emergency Provider Emergency Medicine; PCP Family Medicine
DX: R53.1 Weakness (principal); W19.XXXA Unspecified fall, initial encounter
CPT/HCPCS: 36416; 70450; 71045; 80053; 82962; 84443; 85025; 93005; 99213; 99285